=== PATIENT | male | born 1965 | race Caucasian/White ===

== ENCOUNTER 2021-07-18 13:02 | Inpatient (IN) ==
[~2021-07-18 13:02] MED LIST: CLORAZEPATE 3.75 MG TABLET PO PRN; DEXTROSE 50% 25 GM/50 ML VIAL IV PRN; GLUCAGON 1 MG VIAL IM PRN; MORPHINE 2 MG/1 ML SYRINGE IV PRN; NICOTINE 21 MG/24 HR PATCH TRANSDERM PRN; NITROGLYCERIN SL 0.4 MG TABLET SL PRN
[2021-07-18] MEDS: INSULIN REGULAR 100 UNIT/ML SUBCUT SCH ×3 (15:18→20:22)
[2021-07-18] MEDS: CHLORHEXIDINE 4% SOLN 118 ML BOTTLE TOP SCH ×4 (15:18→20:22)
[2021-07-18] MEDS: CHLORHEXIDINE 0.12% ORAL RINSE 60 ML BOTTLE SWISH/SPIT SCH ×2 (15:18→20:22)
[2021-07-18 15:38] LABS: Basophils # 0.1 10*3/uL (0.0-0.2); Basophils % 0.8 % (0.0-0.8); Eosinophils # 0.2 10*3/uL (0.0-0.87); Eosinophils % 1.8 % (0.00-10.9); Hematocrit 51.8 VOL% (42.0-52.0); Hemoglobin 16.7 GM/DL (14.0-18.0); Immature Granulocytes % 0.4 %; Immature Granulocytes Absolute 0.03 #; Lymphocytes # 2.2 10*3/uL (1.4-4.0); Lymphocytes % 26.4 % (21.2-54.2); Mean Corpuscular HGB Conc 32.2 GM/DL (32-36); Mean Corpuscular Volume 88.4 FL (87-102); Mean Platelet Volume 10.7 FL (9.6-12.0); Monocytes % 9.1 % (1.7-12.7); Neutrophils % 61.5 % (38.7-73.9); Platelet Count 198 T/CUMM (130-400); Red Blood Count 5.86 MC/CUMM (3.8-5.5); White Blood Count 8.3 T/CUMM (4-12)
[2021-07-18] MEDS ORDERED: PNEUMOCOCCAL VACCINE (23 VALENT) 0.5 ML VIAL IM ONE (15:41)
[2021-07-18] MEDS ORDERED: INFLUENZA VIRUS VACCINE 0.5 ML SYRINGE IM ONE (15:41)
[2021-07-18] MEDS: SODIUM CHLORIDE 0.9% 1,000 ML IV SCH (15:55)
[2021-07-18 15:59] LABS: Albumin 3.5 G/DL (3.4-5.0); Bilirubin,Total 1.4 MG/DL (0.20-1.00); Calcium 9.6 MG/DL (8.5-10.1); Osmolality,Calculated 283.1 MOS/KG (273-304); Potassium 3.7 MMOL/L (3.5-5.1); Total Protein 7.3 G/DL (6.4-8.2)
[2021-07-18 16:18] LABS: ABG Base Excess 2.2 MMOL/L (-2.5-2.5); ABG HCO3 26.1 MMOL/L (20-26); ABG Oxygen Saturation 90.1 % (95-100); ABG PCO2 50.3 MM HG (35-48); ABG PH 7.367 (7.35-7.45); ABG PO2 62.4 MM HG (80-95); ABG TCO2 24.1 MMOL/L (23-27); Allen Test Positive; Pt O2 Delivery Device Room Air
[2021-07-19] MEDS ORDERED: VANCOMYCIN 1,000 MG VIAL ONE (04:24)
[2021-07-19] MEDS ORDERED: PAPAVERINE 60 MG/2 ML VIAL ONE (04:24)
[2021-07-19] MEDS ORDERED: VANCOMYCIN 500 MG VIAL ONE (04:24)
[2021-07-19] MEDS ORDERED: CEFUROXIME INJ 1,500 MG in SODIUM CHLORIDE 0.9% 100 ML IV ONE (05:00)
[2021-07-19] MEDS ORDERED: LORazepam 1 MG TABLET PO ONE (05:30)
[2021-07-19] MEDS ORDERED: LACTATED RINGERS 1,000 ML IV ONE (05:50)
[2021-07-19] MEDS ORDERED: SODIUM CHLORIDE 0.9% 250 ML IV ONE (05:50)
[2021-07-19] MEDS ORDERED: PHENYLEPHRINE DRIP 20 MG/250 ML PREMIX IV ONE (05:50)
[2021-07-19] MEDS ORDERED: NITROGLYCERIN DRIP 50 MG/250 ML BOTTLE IV ONE (05:50)
[2021-07-19] MEDS ORDERED: SEVOFLURANE 1 UNIT/15 MINUTE INH ONE ×2 (05:50→11:14)
[2021-07-19] MEDS ORDERED: HEPARIN/NACL 0.9% 2 UNITS/ML 1,000 UNIT/500 ML BAG IV ONE (05:50)
[2021-07-19] MEDS ORDERED: LIDOCAINE 2% 5 ML VIAL ONE ×2 (05:50→10:47)
[2021-07-19] MEDS ORDERED: ETOMIDATE 40 MG/20 ML VIAL IV ONE (05:50)
[2021-07-19] MEDS ORDERED: CALCIUM CHLORIDE 1,000 MG/10 ML VIAL IV ONE ×3 (05:50→10:46)
[2021-07-19] MEDS ORDERED: AMINOCAPROIC ACID 5,000 MG/20 ML VIAL ONE (05:50)
[2021-07-19] MEDS ORDERED: VECURONIUM 10 MG VIAL IV ONE (05:50)
[2021-07-19] MEDS ORDERED: MINERAL OIL/PETROLATUM OPH OINT 3.5 GM TUBE ONE (05:50)
[2021-07-19] MEDS ORDERED: SODIUM CHLORIDE 0.9% 1,000 ML IV ONE (05:50)
[2021-07-19] MEDS ORDERED: MIDAZOLAM 10 MG/2 ML VIAL ONE ×4 (05:51)
[2021-07-19] MEDS ORDERED: SUFentanil 250 MCG/5 ML AMP ONE (05:51)
[2021-07-19] MEDS ORDERED: ePHEDrine 50 MG/ML VIAL ONE (05:51)
[2021-07-19] MEDS ORDERED: ALBUTEROL 2.5 MG/3 ML NEB RESP TX ONE ×2 (06:00→06:20)
[2021-07-19] MEDS ORDERED: FAMOTIDINE 20 MG TABLET PO ONE (06:00)
[2021-07-19] MEDS ORDERED: IPRATROPIUM 500 MCG/2.5 ML NEB RESP TX ONE (06:00)
[2021-07-19] MEDS ORDERED: LACTATED RINGERS 1,000 ML IV SCH (06:00)
[2021-07-19] MEDS ORDERED: FUROSEMIDE 20 MG/2 ML VIAL ONE ×3 (06:00→10:49)
[2021-07-19] MEDS ORDERED: POTASSIUM CHLORIDE RIDER 20 MEQ/100 ML PREMIX IV ONE (07:04)
[2021-07-19 07:29] LABS: ABG Base Excess -0.8 MMOL/L (-2.5-2.5); ABG HCO3 23.8 MMOL/L (20-26); ABG Oxygen Saturation 99.1 % (95-100); ABG PCO2 60.1 MM HG (35-48); ABG PH 7.279 (7.35-7.45); Glucose Heart Surgery 134 MG/DL (74-106); Hematocrit Heart Surgery 50.2 PERCENT (42-52); Hemoglobin Heart Surgery 16.4 G/DL (14.0-18.0); Ionized Calcium Arterial 1.24 MMOL/L (1.21-1.46); PCO2 Patient Temp Arterial 60.1 MMHG; PH Patient Temp Arterial 7.279; Patient Temperature 37 CELCIUS; Potassium Heart/CVR 4.3 MMOL/L (3.5-5.1); Sodium Heart/CVR 138 MMOL/L (135-145)
[2021-07-19] MEDS ORDERED: ALBUMIN 5% 12.5 GM/250 ML VIAL IV ONE (07:52)
[2021-07-19 07:53] LABS: Bacteria,Urine Occasional /HPF (Few); Bilirubin,Urine Negative (Negative); Blood, Urine Negative (Negative); Glucose,Urine (UA) Negative (Negative); Ketones,Urine Negative (Negative); Mucus,Urine Occasional /LPF (Occasional); Nitrite,Urine Negative (Negative); Protein,Urine Negative; RBC,Urine 1 /HPF (0-4); Urine Appearance CLEAR (Clear); Urine Color Yellow (Yellow); Urine Urobilinogen < 2.0 EU/DL (0.2-1.0)
[2021-07-19 09:00] LABS: Hematocrit Heart Surgery 39.9 PERCENT (42-52); PCO2 Patient Temp Venous 44.4 MM HG; PH Patient Temp Venous 7.398; PO2 Patient Temp Venous 36.3 MM HG; Potassium Heart/CVR 4.9 MMOL/L (3.5-5.1); VBG Base Excess 2.1 MEQ/L (0-4); VBG HCO3 25.8 MEQ/L (24-28); VBG Oxygen Saturation 76.2 %; VBG PCO2 51.3 MMHG (41-51); VBG PH 7.355; VBG PO2 44.7 MMHG (17-40); VBG Total CO2 25.3 MMOL/L
[2021-07-19 09:32] LABS: Hematocrit Heart Surgery 43.3 PERCENT (42-52); Hemoglobin Heart Surgery 14.1 G/DL (14.0-18.0); PCO2 Patient Temp Venous 40.3 MM HG; PH Patient Temp Venous 7.429; PO2 Patient Temp Venous 34.6 MM HG; Potassium Heart/CVR 4.6 MMOL/L (3.5-5.1); VBG Base Excess 2.1 MEQ/L (0-4); VBG HCO3 25.7 MEQ/L (24-28); VBG Oxygen Saturation 75.1 %; VBG PCO2 46.5 MMHG (41-51); VBG PH 7.385; VBG PO2 42.7 MMHG (17-40); VBG Total CO2 24.2 MMOL/L
[2021-07-19 10:01] LABS: Hematocrit Heart Surgery 45.5 PERCENT (42-52); Hemoglobin Heart Surgery 14.8 G/DL (14.0-18.0); PCO2 Patient Temp Venous 43.5 MM HG; PH Patient Temp Venous 7.405; PO2 Patient Temp Venous 44.3 MM HG; Potassium Heart/CVR 4.4 MMOL/L (3.5-5.1); VBG HCO3 25.7 MEQ/L (24-28); VBG Oxygen Saturation 78.5 %; VBG PCO2 45.6 MMHG (41-51); VBG PH 7.39; VBG PO2 47.5 MMHG (17-40); VBG Total CO2 23.8 MMOL/L
[2021-07-19] MEDS ORDERED: MAGNESIUM SULFATE 5 GM/10 ML VIAL IV ONE (10:47)
[2021-07-19] MEDS ORDERED: ALBUMIN 25% 25 GM/100 ML VIAL IV ONE (10:47)
[2021-07-19] MEDS ORDERED: PROTAMINE SULFATE 250 MG/25 ML VIAL IV ONE (10:48)
[2021-07-19] MEDS ORDERED: MANNITOL 100 GM/500 ML BAG IV ONE (10:48)
[2021-07-19] MEDS ORDERED: methylPREDNISolone SOD SUC 1,000 MG/8 ML VIAL ONE (10:48)
[2021-07-19] MEDS ORDERED: HEPARIN 10,000 UNIT/10 ML VIAL ONE (10:48)
[2021-07-19] MEDS ORDERED: DEXTROSE 5% KCL 20 MEQ 20 MEQ/1,000 ML BAG IV ONE (10:48)
[2021-07-19] MEDS ORDERED: SODIUM BICARBONATE 50 MEQ/50 ML VIAL IV ONE (10:49)
[2021-07-19 10:55] LABS: ABG Base Excess -0.6 MMOL/L (-2.5-2.5); ABG HCO3 23.9 MMOL/L (20-26); ABG Oxygen Saturation 99.6 % (95-100); ABG PCO2 47.2 MM HG (35-48); ABG PH 7.345 (7.35-7.45); Glucose Heart Surgery 209 MG/DL (74-106); Hematocrit Heart Surgery 47.1 PERCENT (42-52); Hemoglobin Heart Surgery 15.4 G/DL (14.0-18.0); Ionized Calcium Arterial 1.26 MMOL/L (1.21-1.46); PCO2 Patient Temp Arterial 47.2 MMHG; PH Patient Temp Arterial 7.345; Patient Temperature 37 CELCIUS; Sodium Heart/CVR 135 MMOL/L (135-145)
[2021-07-19] MEDS ORDERED: SODIUM CHLORIDE 0.45% 1,000 ML IV SCH ×2 (11:01)
[2021-07-19] MEDS ORDERED: CHLORHEXIDINE 4% SOLN 118 ML BOTTLE TOP PRN (11:01)
[2021-07-19] MEDS ORDERED: MAGNESIUM SULF RIDER 4 GM/100 ML PREMIX IV PRN (11:01)
[2021-07-19] MEDS ORDERED: POTASSIUM CHLORIDE RIDER 10 MEQ/100 ML PREMIX IV PRN (11:01)
[2021-07-19] MEDS ORDERED: INSULIN REGULAR 100 UNIT/ML IV PRN (11:01)
[2021-07-19] MEDS ORDERED: ACETAMINOPHEN 650 MG SUPP RECTAL PRN (11:01)
[2021-07-19] MEDS ORDERED: VECURONIUM 10 MG VIAL IV PRN ×2 (11:01)
[2021-07-19] MEDS ORDERED: NITROPRUSSIDE 100 MG in DEXTROSE 5% 250 ML IV PRN (11:01)
[2021-07-19] MEDS ORDERED: INSULIN REGULAR 100 UNIT/ML IV ONE (11:01)
[2021-07-19] MEDS ORDERED: PHENYLEPHRINE DRIP 40 MG/250 ML PREMIX IV PRN (11:01)
[2021-07-19] MEDS ORDERED: CALCIUM CHLORIDE 1,000 MG/10 ML SYRINGE IV PRN (11:01)
[2021-07-19] MEDS ORDERED: DEXTROSE 50% 25 GM/50 ML VIAL IV PRN ×2 (11:01)
[2021-07-19] MEDS ORDERED: MAGNESIUM SULF RIDER 2 GM/50 ML PREMIX IV PRN (11:01)
[2021-07-19] MEDS ORDERED: ONDANSETRON 4 MG/2 ML VIAL IV PRN (11:01)
[2021-07-19] MEDS ORDERED: MIDAZOLAM 10 MG/2 ML VIAL IV PRN (11:01)
[2021-07-19] MEDS ORDERED: MIDAZOLAM 2 MG/2 ML VIAL IV PRN (11:01)
[2021-07-19 11:59] LABS: ABG Base Excess -0.7 MMOL/L (-2.5-2.5); ABG HCO3 23.9 MMOL/L (20-26); ABG Oxygen Saturation 99.3 % (95-100); ABG PCO2 50.4 MM HG (35-48); ABG PH 7.327 (7.35-7.45); ABG TCO2 22.4 MMOL/L (23-27); Glucose Heart Surgery 180 MG/DL (74-106); Hematocrit Heart Surgery 48.2 PERCENT (42-52); Hemoglobin Heart Surgery 15.7 G/DL (14.0-18.0); Potassium Heart/CVR 3.6 MMOL/L (3.5-5.1)
[2021-07-19] MEDS: LACTATED RINGERS 250 ML IV PRN ×12 (12:00→18:04)
[2021-07-19 12:18] LABS: Basophils # 0.1 10*3/uL (0.0-0.2); Basophils % 0.6 % (0.0-0.8); Eosinophils # 0.1 10*3/uL (0.0-0.87); Eosinophils % 0.6 % (0.00-10.9); Hematocrit 48.6 VOL% (42.0-52.0); Hemoglobin 15.3 GM/DL (14.0-18.0); Immature Granulocytes % 0.9 %; Immature Granulocytes Absolute 0.14 #; Lymphocytes # 1.9 10*3/uL (1.4-4.0); Lymphocytes % 11.5 % (21.2-54.2); Mean Corpuscular HGB Conc 31.5 GM/DL (32-36); Mean Corpuscular Volume 91.2 FL (87-102); Mean Platelet Volume 10.8 FL (9.6-12.0); Monocytes % 5.3 % (1.7-12.7); Neutrophils % 81.1 % (38.7-73.9); Platelet Count 197 T/CUMM (130-400); Red Blood Count 5.33 MC/CUMM (3.8-5.5); Red Cell Distribution Width 15.9 % (9.3-17.3); White Blood Count 16.5 T/CUMM (4-12)
[2021-07-19 12:28] LABS: INR 1.1; PT Patient Result 12.2 SECS (10.5-12.0); Partial Thromboplastin Time 25.6 SECS (23.9-33.8)
[2021-07-19] MEDS: ALBUMIN 5% 12.5 GM/250 ML VIAL IV PRN ×3 (12:33→15:19)
[2021-07-19] MEDS: INSULIN REGULAR DRIP 100 ML IV SCH (12:34)
[2021-07-19 12:39] LABS: CKMB % 5.2 %
[2021-07-19 12:46] LABS: Albumin 3.5 G/DL (3.4-5.0); Osmolality,Calculated 278.7 MOS/KG (273-304); Potassium 3.7 MMOL/L (3.5-5.1); Total Protein 6.4 G/DL (6.4-8.2)
[2021-07-19 12:55] LABS: High Sensitive Troponin I* 3139.1 ng/L (0-78)
[2021-07-19] MEDS: POTASSIUM CHLORIDE RIDER 20 MEQ/100 ML PREMIX IV PRN ×4 (12:56→21:22)
[2021-07-19] MEDS: MORPHINE 10 MG/1 ML VIAL IV PRN ×3 (13:12→22:36)
[2021-07-19 13:23] LABS: ABG Base Excess -0.8 MMOL/L (-2.5-2.5); ABG HCO3 23.7 MMOL/L (20-26); ABG Oxygen Saturation 97.7 % (95-100); ABG PCO2 49.2 MM HG (35-48); ABG PH 7.329 (7.35-7.45); ABG TCO2 22.5 MMOL/L (23-27); Glucose Heart Surgery 175 MG/DL (74-106); Hematocrit Heart Surgery 43.7 PERCENT (42-52); Hemoglobin Heart Surgery 14.2 G/DL (14.0-18.0); Potassium Heart/CVR 4.1 MMOL/L (3.5-5.1)
[2021-07-19] MEDS: CHLORHEXIDINE 0.12% ORAL RINSE 60 ML BOTTLE SWISH/SPIT SCH ×2 (13:24→21:28)
[2021-07-19] MEDS: SODIUM CHLORIDE 0.9% 1,000 ML IV SCH (13:24)
[2021-07-19] MEDS: INSULIN REGULAR 100 UNIT/ML SUBCUT SCH (13:24)
[2021-07-19 15:10] LABS: ABG Base Excess 0.4 MMOL/L (-2.5-2.5); ABG HCO3 24.8 MMOL/L (20-26); ABG Oxygen Saturation 96.6 % (95-100); ABG PCO2 47.4 MM HG (35-48); ABG PH 7.357 (7.35-7.45); ABG PO2 94.2 MM HG (80-95); Glucose Heart Surgery 190 MG/DL (74-106); Hematocrit Heart Surgery 43.8 PERCENT (42-52); Hemoglobin Heart Surgery 14.3 G/DL (14.0-18.0); Potassium Heart/CVR 4.4 MMOL/L (3.5-5.1)
[2021-07-19] MEDS: KETOROLAC 30 MG/1 ML VIAL IV SCH ×2 (16:10→22:13)
[2021-07-19] MEDS: CEFUROXIME INJ 1,500 MG in SODIUM CHLORIDE 0.9% 100 ML IV SCH (18:00)
[2021-07-19 18:12] LABS: ABG Base Excess -0.5 MMOL/L (-2.5-2.5); ABG HCO3 25.4 MMOL/L (20-26); ABG Oxygen Saturation 93.4 % (95-100); ABG PCO2 46.2 MM HG (35-48); ABG PH 7.358 (7.35-7.45); ABG PO2 70.4 MM HG (80-95); ABG TCO2 26.8 MMOL/L (23-27); Glucose Heart Surgery 182 MG/DL (74-106); Hemoglobin Heart Surgery 14.3 G/DL (14.0-18.0); Potassium Heart/CVR 4.3 MMOL/L (3.5-5.1)
[2021-07-19] MEDS ORDERED: FUROSEMIDE 40 MG/4 ML VIAL IV ONE (18:16)
[2021-07-19 19:43] LABS: CKMB % 5.9 %
[2021-07-19 21:16] LABS: ABG Base Excess 0.4 MMOL/L (-2.5-2.5); ABG HCO3 26.2 MMOL/L (20-26); ABG Oxygen Saturation 94.2 % (95-100); ABG PCO2 46.6 MM HG (35-48); ABG PH 7.368 (7.35-7.45); ABG PO2 73.6 MM HG (80-95); ABG TCO2 27.6 MMOL/L (23-27); Glucose Heart Surgery 178 MG/DL (74-106); Hemoglobin Heart Surgery 14.3 G/DL (14.0-18.0); Potassium Heart/CVR 4.4 MMOL/L (3.5-5.1)
[2021-07-19 22:10] LABS: ABG Base Excess 1.2 MMOL/L (-2.5-2.5); ABG HCO3 27.2 MMOL/L (20-26); ABG Oxygen Saturation 93.1 % (95-100); ABG PCO2 48.1 MM HG (35-48); ABG PO2 69.5 MM HG (80-95); ABG TCO2 28.7 MMOL/L (23-27); Glucose Heart Surgery 169 MG/DL (74-106); Hemoglobin Heart Surgery 14.6 G/DL (14.0-18.0); Potassium Heart/CVR 4.6 MMOL/L (3.5-5.1)
[2021-07-19] MEDS: ALBUTEROL/IPRATROPIUM 3 ML NEB RESP TX PRN (23:01)
[2021-07-19 23:53] LABS: ABG Base Excess 0.6 MMOL/L (-2.5-2.5); ABG HCO3 24.9 MMOL/L (20-26); ABG Oxygen Saturation 93.4 % (95-100); ABG PCO2 48.4 MM HG (35-48); ABG PH 7.353 (7.35-7.45); ABG PO2 75.1 MM HG (80-95); ABG TCO2 23.5 MMOL/L (23-27); Glucose Heart Surgery 180 MG/DL (74-106); Hematocrit Heart Surgery 41.7 PERCENT (42-52); Hemoglobin Heart Surgery 13.6 G/DL (14.0-18.0); Potassium Heart/CVR 4.4 MMOL/L (3.5-5.1)
[2021-07-20] MEDS ORDERED: FUROSEMIDE 40 MG/4 ML VIAL IV ONE ×2 (00:55→08:04)
[2021-07-20 01:08] LABS: ABG HCO3 25.2 MMOL/L (20-26); ABG PCO2 43.8 MM HG (35-48); ABG PH 7.387 (7.35-7.45); ABG PO2 69.6 MM HG (80-95); ABG TCO2 22.9 MMOL/L (23-27); Glucose Heart Surgery 173 MG/DL (74-106); Hemoglobin Heart Surgery 13.7 G/DL (14.0-18.0); Potassium Heart/CVR 4.4 MMOL/L (3.5-5.1)
[2021-07-20 02:22] LABS: ABG Base Excess 2.1 MMOL/L (-2.5-2.5); ABG HCO3 25.9 MMOL/L (20-26); ABG Oxygen Saturation 85.7 % (95-100); ABG PCO2 44.8 MM HG (35-48); ABG PH 7.396 (7.35-7.45); ABG PO2 55.3 MM HG (80-95); ABG TCO2 23.8 MMOL/L (23-27); Glucose Heart Surgery 174 MG/DL (74-106); Hematocrit Heart Surgery 43.5 PERCENT (42-52); Hemoglobin Heart Surgery 14.2 G/DL (14.0-18.0); Potassium Heart/CVR 4.1 MMOL/L (3.5-5.1)
[2021-07-20] MEDS: ALBUTEROL/IPRATROPIUM 3 ML NEB RESP TX PRN (02:46)
[2021-07-20] MEDS: INSULIN REGULAR DRIP 100 ML IV SCH (03:19)
[2021-07-20] MEDS: POTASSIUM CHLORIDE RIDER 20 MEQ/100 ML PREMIX IV PRN ×2 (03:34→05:09)
[2021-07-20 04:25] LABS: ABG Base Excess 2.1 MMOL/L (-2.5-2.5); ABG Oxygen Saturation 87.4 % (95-100); ABG PCO2 43.6 MM HG (35-48); ABG PH 7.404 (7.35-7.45); ABG PO2 56.7 MM HG (80-95); ABG TCO2 23.7 MMOL/L (23-27); Hematocrit Heart Surgery 41.7 PERCENT (42-52); Hemoglobin Heart Surgery 13.6 G/DL (14.0-18.0); Potassium Heart/CVR 4.3 MMOL/L (3.5-5.1)
[2021-07-20 04:27] LABS: Glucose Heart Surgery 160 MG/DL (74-106)
[2021-07-20 04:43] LABS: Basophils % 0.1 % (0.0-0.8); Hematocrit 42.4 VOL% (42.0-52.0); Hemoglobin 13.3 GM/DL (14.0-18.0); Immature Granulocytes % 0.6 %; Immature Granulocytes Absolute 0.07 #; Lymphocytes # 1.1 10*3/uL (1.4-4.0); Mean Corpuscular HGB Conc 31.4 GM/DL (32-36); Mean Platelet Volume 11.1 FL (9.6-12.0); Monocytes % 7.5 % (1.7-12.7); Neutrophils % 82.8 % (38.7-73.9); Platelet Count 180 T/CUMM (130-400); Red Blood Count 4.61 MC/CUMM (3.8-5.5); Red Cell Distribution Width 16.2 % (9.3-17.3); White Blood Count 12.6 T/CUMM (4-12)
[2021-07-20 04:54] LABS: Alanine Aminotransferase 32 U/L (16-61); Albumin 3.7 G/DL (3.4-5.0); Alkaline Phosphatase 55 U/L (45-117); Aspartate Amino Transferase 148 U/L (0-37); Bilirubin,Direct < 0.100 MG/DL (0.0-0.20); Blood Urea Nitrogen 19 MG/DL (7-18); Calcium 8.3 MG/DL (8.5-10.1); Carbon Dioxide 29 MMOL/L (21-32); Estimated Glom Filtration Rate 140 ML/MIN; Glucose 149 MG/DL (74-106); Osmolality,Calculated 279.7 MOS/KG (273-304); Potassium 4.4 MMOL/L (3.5-5.1); Sodium 138 MMOL/L (136-145); Total Protein 6.2 G/DL (6.4-8.2)
[2021-07-20 05:06] LABS: CKMB % 9.9 %
[2021-07-20] MEDS: KETOROLAC 30 MG/1 ML VIAL IV SCH ×4 (05:09→21:48)
[2021-07-20] MEDS: CEFUROXIME INJ 1,500 MG in SODIUM CHLORIDE 0.9% 100 ML IV SCH ×2 (06:31→18:13)
[2021-07-20] MEDS ORDERED: GLUCAGON 1 MG VIAL IM PRN ×3 (07:10→09:42)
[2021-07-20] MEDS ORDERED: DEXTROSE 50% 25 GM/50 ML VIAL IV PRN ×3 (07:10→09:42)
[2021-07-20] MEDS ORDERED: oxyCODONE/ACETAMINOPHEN 5-325 MG TABLET PO PRN (07:19)
[2021-07-20] MEDS ORDERED: INSULIN REGULAR 100 UNIT/ML SUBCUT SCH (08:00)
[2021-07-20] MEDS ORDERED: FUROSEMIDE 40 MG/4 ML VIAL ONE (08:28)
[2021-07-20] MEDS: ASPIRIN EC 81 MG TABLET PO SCH (09:35)
[2021-07-20] MEDS: hydroCHLOROthiazide 25 MG TABLET PO SCH (09:35)
[2021-07-20] MEDS: METOPROLOL TARTRATE 25 MG TABLET PO SCH (09:35)
[2021-07-20] MEDS: CHLORHEXIDINE 0.12% ORAL RINSE 60 ML BOTTLE SWISH/SPIT SCH ×2 (09:38→22:05)
[2021-07-20] MEDS ORDERED: MAGNESIUM SULF RIDER 4 GM/100 ML PREMIX IV PRN (09:42)
[2021-07-20] MEDS ORDERED: ONDANSETRON 4 MG/2 ML VIAL IV PRN (09:42)
[2021-07-20] MEDS ORDERED: MAGNESIUM SULF RIDER 2 GM/50 ML PREMIX IV PRN (09:42)
[2021-07-20] MEDS ORDERED: SODIUM CHLOR 0.45% KCL 20 MEQ 20 MEQ/1,000 ML BAG IV SCH (09:42)
[2021-07-20] MEDS ORDERED: ZALEPLON 5 MG CAPSULE PO PRN (09:42)
[2021-07-20] MEDS ORDERED: ACETAMINOPHEN 325 MG TABLET PO PRN (09:42)
[2021-07-20] MEDS ORDERED: ALUMINUM/MAGNES/SIMETH MAX STR 30 ML UDCUP PO PRN (09:42)
[2021-07-20] MEDS ORDERED: POTASSIUM CHLORIDE 20 MEQ TABLET PO PRN (09:42)
[2021-07-20] MEDS ORDERED: MAGNESIUM HYDROXIDE SUSP 30 ML UDCUP PO PRN (09:42)
[2021-07-20] MEDS ORDERED: ALBUTEROL 2.5 MG/3 ML NEB RESP TX PRN (09:42)
[2021-07-20 12:21] LABS: CKMB % 9.6 %
[2021-07-20 12:26] LABS: High Sensitive Troponin I* 41305.6 ng/L (0-78)
[2021-07-20] MEDS: oxyCODONE/ACETAMINOPHEN 5-325 MG TABLET PO PRN ×3 (14:19→22:29)
[2021-07-20] MEDS: ALBUTEROL/IPRATROPIUM 3 ML NEB RESP TX SCH ×2 (14:43→19:05)
[2021-07-20 17:39] LABS: CKMB % 7.7 %
[2021-07-20] MEDS: ASCORBIC ACID 500 MG TABLET PO SCH (21:43)
[2021-07-21] MEDS: ALBUTEROL/IPRATROPIUM 3 ML NEB RESP TX SCH ×4 (01:48→19:17)
[2021-07-21] MEDS: KETOROLAC 30 MG/1 ML VIAL IV SCH ×4 (04:19→22:15)
[2021-07-21] MEDS ORDERED: FUROSEMIDE 40 MG/4 ML VIAL IV ONE (06:00)
[2021-07-21 06:30] LABS: Basophils % 0.1 % (0.0-0.8); Hematocrit 41.3 VOL% (42.0-52.0); Immature Granulocytes % 0.6 %; Immature Granulocytes Absolute 0.09 #; Lymphocytes # 1.7 10*3/uL (1.4-4.0); Lymphocytes % 11.7 % (21.2-54.2); Mean Corpuscular HGB Conc 31.5 GM/DL (32-36); Mean Platelet Volume 11.2 FL (9.6-12.0); Monocytes % 11.4 % (1.7-12.7); Neutrophils % 76.2 % (38.7-73.9); Platelet Count 166 T/CUMM (130-400); Red Blood Count 4.49 MC/CUMM (3.8-5.5); Red Cell Distribution Width 16.4 % (9.3-17.3); White Blood Count 14.8 T/CUMM (4-12)
[2021-07-21 06:58] LABS: Alanine Aminotransferase 41 U/L (16-61); Albumin 3.4 G/DL (3.4-5.0); Alkaline Phosphatase 57 U/L (45-117); Aspartate Amino Transferase 199 U/L (0-37); Bilirubin,Direct < 0.100 MG/DL (0.0-0.20); Blood Urea Nitrogen 26 MG/DL (7-18); Carbon Dioxide 31 MMOL/L (21-32); Estimated Glom Filtration Rate 151 ML/MIN; Glucose 139 MG/DL (74-106); Osmolality,Calculated 276.1 MOS/KG (273-304); Potassium 4.1 MMOL/L (3.5-5.1); Sodium 135 MMOL/L (136-145); Total Protein 6.9 G/DL (6.4-8.2)
[2021-07-21 07:10] LABS: Albumin 3.3 G/DL (3.4-5.0); Bilirubin,Direct 0.12 MG/DL (0.0-0.20); Bilirubin,Indirect 0.4 MG/DL (0.0-1.0); Bilirubin,Total 0.5 MG/DL (0.20-1.00); CKMB % 4.7 %; Total Protein 6.8 G/DL (6.4-8.2)
[2021-07-21 07:11] LABS: High Sensitive Troponin I* 25734.2 ng/L (0-78)
[2021-07-21] MEDS: oxyCODONE/ACETAMINOPHEN 5-325 MG TABLET PO PRN ×2 (08:35→18:56)
[2021-07-21] MEDS: FERROUS SULFATE 325 MG TABLET PO SCH (09:40)
[2021-07-21] MEDS: hydroCHLOROthiazide 25 MG TABLET PO SCH (09:40)
[2021-07-21] MEDS: ASCORBIC ACID 500 MG TABLET PO SCH ×2 (09:40→20:53)
[2021-07-21] MEDS: DOCUSATE SODIUM 100 MG CAPSULE PO SCH (09:40)
[2021-07-21] MEDS: PANTOPRAZOLE 40 MG TABLET PO SCH (09:41)
[2021-07-21] MEDS: CHLORHEXIDINE 0.12% ORAL RINSE 60 ML BOTTLE SWISH/SPIT SCH ×2 (09:41→20:53)
[2021-07-21] MEDS: ASPIRIN EC 81 MG TABLET PO SCH (09:41)
[2021-07-21] MEDS: METOPROLOL TARTRATE 25 MG TABLET PO SCH (09:41)
[2021-07-21] MEDS: ROSUVASTATIN 10 MG TABLET PO SCH (20:53)
[2021-07-22] MEDS: oxyCODONE/ACETAMINOPHEN 5-325 MG TABLET PO PRN ×3 (00:23→22:52)
[2021-07-22] MEDS: ALBUTEROL/IPRATROPIUM 3 ML NEB RESP TX SCH ×4 (01:16→19:53)
[2021-07-22] MEDS: KETOROLAC 30 MG/1 ML VIAL IV SCH ×4 (04:03→21:50)
[2021-07-22 04:47] LABS: Basophils % 0.3 % (0.0-0.8); Eosinophils % 0.3 % (0.00-10.9); Hematocrit 39.2 VOL% (42.0-52.0); Hemoglobin 12.4 GM/DL (14.0-18.0); Immature Granulocytes % 0.7 %; Immature Granulocytes Absolute 0.08 #; Lymphocytes # 2.2 10*3/uL (1.4-4.0); Lymphocytes % 19.1 % (21.2-54.2); Mean Corpuscular HGB Conc 31.6 GM/DL (32-36); Mean Corpuscular Volume 91.2 FL (87-102); Mean Platelet Volume 11.4 FL (9.6-12.0); Monocytes % 12.1 % (1.7-12.7); Neutrophils % 67.5 % (38.7-73.9); Platelet Count 170 T/CUMM (130-400); Red Cell Distribution Width 16.3 % (9.3-17.3); White Blood Count 11.7 T/CUMM (4-12)
[2021-07-22 05:25] LABS: Albumin 3.1 G/DL (3.4-5.0); Bilirubin,Direct 0.16 MG/DL (0.0-0.20); Bilirubin,Total 0.6 MG/DL (0.20-1.00); Calcium 8.8 MG/DL (8.5-10.1); Osmolality,Calculated 277.8 MOS/KG (273-304); Potassium 3.7 MMOL/L (3.5-5.1); Total Protein 6.7 G/DL (6.4-8.2)
[2021-07-22 05:30] LABS: Bilirubin,Direct 0.14 MG/DL (0.0-0.20); Bilirubin,Indirect 0.5 MG/DL (0.0-1.0); Bilirubin,Total 0.6 MG/DL (0.20-1.00); CKMB % 1.8 %; Total Protein 6.7 G/DL (6.4-8.2)
[2021-07-22] MEDS: POLYETHYLENE GLYCOL POWDER 17 GM PACK PO SCH (09:46)
[2021-07-22] MEDS: FERROUS SULFATE 325 MG TABLET PO SCH (09:47)
[2021-07-22] MEDS: METOPROLOL TARTRATE 25 MG TABLET PO SCH ×2 (09:47→20:49)
[2021-07-22] MEDS: ASPIRIN EC 81 MG TABLET PO SCH (09:47)
[2021-07-22] MEDS: PANTOPRAZOLE 40 MG TABLET PO SCH (09:47)
[2021-07-22] MEDS: hydroCHLOROthiazide 25 MG TABLET PO SCH (09:47)
[2021-07-22] MEDS: metFORMIN 500 MG TABLET PO SCH (09:47)
[2021-07-22] MEDS: ASCORBIC ACID 500 MG TABLET PO SCH ×2 (09:48→20:49)
[2021-07-22] MEDS: DOCUSATE SODIUM 100 MG CAPSULE PO SCH (09:48)
[2021-07-22] MEDS: CHLORHEXIDINE 0.12% ORAL RINSE 60 ML BOTTLE SWISH/SPIT SCH ×2 (09:48→20:50)
[2021-07-22] MEDS ORDERED: FUROSEMIDE 40 MG/4 ML VIAL IV ONE (12:34)
[2021-07-22] MEDS: ROSUVASTATIN 10 MG TABLET PO SCH (20:49)
[2021-07-23] MEDS: ALBUTEROL/IPRATROPIUM 3 ML NEB RESP TX SCH ×2 (00:18→07:04)
[2021-07-23] MEDS: KETOROLAC 30 MG/1 ML VIAL IV SCH (04:46)
[2021-07-23 06:46] LABS: Basophils # 0.1 10*3/uL (0.0-0.2); Basophils % 0.6 % (0.0-0.8); Eosinophils # 0.1 10*3/uL (0.0-0.87); Eosinophils % 1.1 % (0.00-10.9); Hematocrit 38.1 VOL% (42.0-52.0); Hemoglobin 12.4 GM/DL (14.0-18.0); Immature Granulocytes % 0.8 %; Immature Granulocytes Absolute 0.08 #; Lymphocytes # 2.6 10*3/uL (1.4-4.0); Lymphocytes % 24.6 % (21.2-54.2); Mean Corpuscular HGB Conc 32.5 GM/DL (32-36); Mean Corpuscular Volume 90.7 FL (87-102); Mean Platelet Volume 11.6 FL (9.6-12.0); Monocytes % 11.4 % (1.7-12.7); Neutrophils % 61.5 % (38.7-73.9); Platelet Count 193 T/CUMM (130-400); White Blood Count 10.4 T/CUMM (4-12)
[2021-07-23 07:11] LABS: Calcium 9.1 MG/DL (8.5-10.1); Potassium 3.8 MMOL/L (3.5-5.1)
[2021-07-23 08:31] VITALS: BP 108/64
[2021-07-23] MEDS: ASPIRIN EC 81 MG TABLET PO SCH (08:55)
[2021-07-23] MEDS: ASCORBIC ACID 500 MG TABLET PO SCH (08:55)
[2021-07-23] MEDS: METOPROLOL TARTRATE 25 MG TABLET PO SCH (08:55)
[2021-07-23] MEDS: POLYETHYLENE GLYCOL POWDER 17 GM PACK PO SCH (08:55)
[2021-07-23] MEDS: CHLORHEXIDINE 0.12% ORAL RINSE 60 ML BOTTLE SWISH/SPIT SCH (08:55)
[2021-07-23] MEDS: DOCUSATE SODIUM 100 MG CAPSULE PO SCH (08:55)
[2021-07-23] MEDS: FERROUS SULFATE 325 MG TABLET PO SCH (08:55)
[2021-07-23] MEDS: hydroCHLOROthiazide 25 MG TABLET PO SCH (08:56)
[2021-07-23] MEDS: metFORMIN 500 MG TABLET PO SCH (08:56)
[2021-07-23] MEDS: PANTOPRAZOLE 40 MG TABLET PO SCH (08:56)
== END 2021-07-23 11:18 | disposition home health service (06) | DRG 236 ==
LOC: N.TELEN 14:43 → N.CVR 07-19 07:43 → N.TELES 07-20 11:16

== ENCOUNTER 2021-07-31 18:57 | Inpatient (IN) ==
[2021-07-31] MEDS ORDERED: FUROSEMIDE 40 MG/4 ML VIAL ONE (19:23)
[2021-07-31] MEDS ORDERED: FUROSEMIDE 40 MG/4 ML VIAL IV STA (19:26)
[2021-07-31] MEDS ORDERED: PIPERACILLIN/TAZOBACTAM 3,375 MG in SODIUM CHLORIDE 0.9% 100 ML IV STA (19:26)
[2021-07-31] MEDS ORDERED: methylPREDNISolone SOD SUC 125 MG/2 ML VIAL IV STA (19:26)
[2021-07-31] MEDS ORDERED: ONDANSETRON 4 MG/2 ML VIAL IV STA (19:26)
[2021-07-31] MEDS ORDERED: ALBUTEROL NEB SOLN 5 MG/ML 20 ML/BOTTLE CONT NEB SCH (19:30)
[2021-07-31 19:35] LABS: Basophils # 0.1 10*3/uL (0.0-0.2); Basophils % 0.3 % (0.0-0.8); Eosinophils % 0.1 % (0.00-10.9); Hematocrit 36.7 VOL% (42.0-52.0); Hemoglobin 11.7 GM/DL (14.0-18.0); Immature Granulocytes % 0.6 %; Immature Granulocytes Absolute 0.11 #; Lymphocytes # 1.2 10*3/uL (1.4-4.0); Lymphocytes % 6.8 % (21.2-54.2); Mean Corpuscular HGB Conc 31.9 GM/DL (32-36); Mean Corpuscular Volume 89.1 FL (87-102); Mean Platelet Volume 9.4 FL (9.6-12.0); Monocytes % 4.5 % (1.7-12.7); Neutrophils % 87.7 % (38.7-73.9); Platelet Count 304 T/CUMM (130-400); Red Blood Count 4.12 MC/CUMM (3.8-5.5); Red Cell Distribution Width 16.2 % (9.3-17.3)
[2021-07-31 19:56] LABS: Albumin 2.8 G/DL (3.4-5.0); Bilirubin,Total 0.4 MG/DL (0.20-1.00); Calcium 8.7 MG/DL (8.5-10.1); Osmolality,Calculated 270.2 MOS/KG (273-304); Potassium 3.9 MMOL/L (3.5-5.1); Total Protein 6.2 G/DL (6.4-8.2)
[2021-07-31 20:33] LABS: INR 1.1; PT Patient Result 12.3 SECS (10.5-12.0)
[2021-07-31] MEDS ORDERED: ALBUTEROL NEB SOLN 5 MG/ML 20 ML/BOTTLE CONT NEB STA (20:45)
[2021-07-31] MEDS ORDERED: ENOXAPARIN 40 MG/0.4 ML SYRINGE SUBCUT SCH (21:00)
[2021-07-31 21:18] LABS: Bacteria,Urine Occasional /HPF (Few); Bilirubin,Urine Negative (Negative); Blood, Urine Small mg/dL (Negative); Glucose,Urine (UA) Negative (Negative); Ketones,Urine Negative (Negative); Mucus,Urine Occasional /LPF (Occasional); Nitrite,Urine Negative (Negative); Protein,Urine Negative; RBC,Urine 18 /HPF (0-4); Urine Appearance CLEAR (Clear); Urine Color Yellow (Yellow); Urine Urobilinogen < 2.0 EU/DL (0.2-1.0)
[2021-07-31] MEDS ORDERED: guaiFENesin/DM ER 600-30 MG TABLET PO PRN (21:39)
[2021-07-31] MEDS ORDERED: GLUCAGON 1 MG VIAL IM PRN (21:39)
[2021-07-31] MEDS ORDERED: ONDANSETRON 4 MG/2 ML VIAL IV PRN (21:39)
[2021-07-31] MEDS ORDERED: ACETAMINOPHEN 325 MG TABLET PO PRN (21:39)
[2021-07-31] MEDS ORDERED: DEXTROSE 50% 25 GM/50 ML VIAL IV PRN (21:39)
[2021-07-31] MEDS ORDERED: SODIUM CHLORIDE 0.9% 250 ML IV ONE (22:24)
[2021-07-31] MEDS ORDERED: ENOXAPARIN 100 MG/ML SYRINGE SUBCUT STA (22:42)
[2021-08-01] MEDS: ZALEPLON 5 MG CAPSULE PO PRN (00:05)
[2021-08-01] MEDS: VANCOMYCIN INJ 2,000 MG in SODIUM CHLORIDE 0.9% 500 ML IV SCH ×2 (00:06→14:30)
[2021-08-01 01:16] LABS: Basophils % 0.2 % (0.0-0.8); Eosinophils % 0.1 % (0.00-10.9); Hematocrit 38.1 VOL% (42.0-52.0); Hemoglobin 12.1 GM/DL (14.0-18.0); Immature Granulocytes Absolute 0.35 #; Lymphocytes # 0.8 10*3/uL (1.4-4.0); Lymphocytes % 4.4 % (21.2-54.2); Mean Corpuscular HGB Conc 31.8 GM/DL (32-36); Mean Corpuscular Volume 89.9 FL (87-102); Mean Platelet Volume 9.5 FL (9.6-12.0); Monocytes % 1.5 % (1.7-12.7); Neutrophils % 91.8 % (38.7-73.9); Platelet Count 308 T/CUMM (130-400); Red Blood Count 4.24 MC/CUMM (3.8-5.5); White Blood Count 17.9 T/CUMM (4-12)
[2021-08-01 01:23] LABS: Calcium 9.1 MG/DL (8.5-10.1); Osmolality,Calculated 269.4 MOS/KG (273-304); Potassium 3.9 MMOL/L (3.5-5.1)
[2021-08-01] MEDS: ALBUTEROL/IPRATROPIUM 3 ML NEB RESP TX SCH ×4 (01:25→20:24)
[2021-08-01 01:31] LABS: Eosinophils 1 % (0-10); Lymphocytes 6 % (20-55); Platelet Estimate Adequate; Segmented Neutrophils 91 % (50-85); Total Cells Counted 100
[2021-08-01] MEDS: PIPERACILLIN/TAZOBACTAM 3,375 MG in SODIUM CHLORIDE 0.9% 100 ML IV SCH ×3 (04:09→21:33)
[2021-08-01] MEDS ORDERED: DOCUSATE SODIUM 100 MG CAPSULE PO SCH (09:00)
[2021-08-01] MEDS: methylPREDNISolone SOD SUC 40 MG/1 ML VIAL IV SCH ×2 (09:29→21:30)
[2021-08-01] MEDS: PANTOPRAZOLE 40 MG TABLET PO SCH (09:29)
[2021-08-01] MEDS: INSULIN REGULAR 100 UNIT/ML SUBCUT SCH ×4 (09:30→21:32)
[2021-08-01] MEDS: ROSUVASTATIN 10 MG TABLET PO SCH (21:27)
[2021-08-01] MEDS: METOPROLOL TARTRATE 25 MG TABLET PO SCH (21:27)
[2021-08-01] MEDS: ASCORBIC ACID 500 MG TABLET PO SCH (21:27)
[2021-08-01] MEDS: ENOXAPARIN 40 MG/0.4 ML SYRINGE SUBCUT SCH (21:29)
[2021-08-02] MEDS: ALBUTEROL/IPRATROPIUM 3 ML NEB RESP TX SCH ×4 (00:55→20:00)
[2021-08-02] MEDS: VANCOMYCIN INJ 2,000 MG in SODIUM CHLORIDE 0.9% 500 ML IV SCH ×2 (01:26→11:59)
[2021-08-02] MEDS: PIPERACILLIN/TAZOBACTAM 3,375 MG in SODIUM CHLORIDE 0.9% 100 ML IV SCH ×3 (03:48→21:04)
[2021-08-02 04:47] LABS: Basophils % 0.1 % (0.0-0.8); Hematocrit 35.9 VOL% (42.0-52.0); Hemoglobin 10.8 GM/DL (14.0-18.0); Immature Granulocytes % 0.7 %; Immature Granulocytes Absolute 0.11 #; Lymphocytes # 1.3 10*3/uL (1.4-4.0); Lymphocytes % 8.3 % (21.2-54.2); Mean Corpuscular HGB Conc 30.1 GM/DL (32-36); Mean Corpuscular Volume 93.5 FL (87-102); Mean Platelet Volume 9.7 FL (9.6-12.0); Monocytes % 4.1 % (1.7-12.7); Neutrophils % 86.8 % (38.7-73.9); Platelet Count 291 T/CUMM (130-400); Red Blood Count 3.84 MC/CUMM (3.8-5.5); Red Cell Distribution Width 16.4 % (9.3-17.3); White Blood Count 15.1 T/CUMM (4-12)
[2021-08-02 05:07] LABS: Osmolality,Calculated 279.7 MOS/KG (273-304); Potassium 4.3 MMOL/L (3.5-5.1)
[2021-08-02] MEDS: PANTOPRAZOLE 40 MG TABLET PO SCH (08:32)
[2021-08-02] MEDS: ASCORBIC ACID 500 MG TABLET PO SCH ×2 (08:32→21:04)
[2021-08-02] MEDS: DOCUSATE SODIUM 100 MG CAPSULE PO SCH (08:33)
[2021-08-02] MEDS: ASPIRIN EC 81 MG TABLET PO SCH (08:33)
[2021-08-02] MEDS: methylPREDNISolone SOD SUC 40 MG/1 ML VIAL IV SCH ×2 (08:33→21:04)
[2021-08-02] MEDS: INSULIN REGULAR 100 UNIT/ML SUBCUT SCH ×4 (08:34→21:04)
[2021-08-02] MEDS: METOPROLOL TARTRATE 25 MG TABLET PO SCH ×2 (08:34→21:04)
[2021-08-02] MEDS: POLYETHYLENE GLYCOL POWDER 17 GM PACK PO SCH (11:20)
[2021-08-02] MEDS: guaiFENesin/DM ER 600-30 MG TABLET PO PRN (16:01)
[2021-08-02] MEDS: ENOXAPARIN 40 MG/0.4 ML SYRINGE SUBCUT SCH (21:03)
[2021-08-02] MEDS: ROSUVASTATIN 10 MG TABLET PO SCH (21:04)
[2021-08-03] MEDS: ZALEPLON 5 MG CAPSULE PO PRN (00:58)
[2021-08-03] MEDS: ALBUTEROL/IPRATROPIUM 3 ML NEB RESP TX SCH ×4 (03:34→19:38)
[2021-08-03 04:53] LABS: Basophils % 0.1 % (0.0-0.8); Hemoglobin 11.1 GM/DL (14.0-18.0); Immature Granulocytes % 0.6 %; Immature Granulocytes Absolute 0.07 #; Lymphocytes # 1.4 10*3/uL (1.4-4.0); Lymphocytes % 12.1 % (21.2-54.2); Mean Corpuscular Volume 93.9 FL (87-102); Mean Platelet Volume 9.2 FL (9.6-12.0); Neutrophils % 81.2 % (38.7-73.9); Platelet Count 262 T/CUMM (130-400); Red Blood Count 3.94 MC/CUMM (3.8-5.5); Red Cell Distribution Width 16.2 % (9.3-17.3); White Blood Count 11.7 T/CUMM (4-12)
[2021-08-03 05:10] LABS: Calcium 8.6 MG/DL (8.5-10.1); Osmolality,Calculated 277.7 MOS/KG (273-304); Potassium 4.7 MMOL/L (3.5-5.1)
[2021-08-03] MEDS: PIPERACILLIN/TAZOBACTAM 3,375 MG in SODIUM CHLORIDE 0.9% 100 ML IV SCH ×3 (05:50→20:48)
[2021-08-03] MEDS: INSULIN REGULAR 100 UNIT/ML SUBCUT SCH ×4 (07:50→20:11)
[2021-08-03] MEDS: POLYETHYLENE GLYCOL POWDER 17 GM PACK PO SCH (08:42)
[2021-08-03] MEDS: METOPROLOL TARTRATE 25 MG TABLET PO SCH ×2 (08:42→20:54)
[2021-08-03] MEDS: ASCORBIC ACID 500 MG TABLET PO SCH ×2 (08:43→20:55)
[2021-08-03] MEDS: ASPIRIN EC 81 MG TABLET PO SCH (08:43)
[2021-08-03] MEDS: PANTOPRAZOLE 40 MG TABLET PO SCH (08:44)
[2021-08-03] MEDS: methylPREDNISolone SOD SUC 40 MG/1 ML VIAL IV SCH ×2 (08:44→20:57)
[2021-08-03] MEDS: DOCUSATE SODIUM 100 MG CAPSULE PO SCH (08:48)
[2021-08-03] MEDS: guaiFENesin/DM ER 600-30 MG TABLET PO PRN (10:47)
[2021-08-03] MEDS: guaiFENesin/DM ER 600-30 MG TABLET PO SCH ×3 (10:59→20:56)
[2021-08-03] MEDS: LACTULOSE 20 GM/30 ML UDCUP PO PRN (11:28)
[2021-08-03] MEDS: ROSUVASTATIN 10 MG TABLET PO SCH (20:55)
[2021-08-03] MEDS: ENOXAPARIN 40 MG/0.4 ML SYRINGE SUBCUT SCH (20:56)
[2021-08-04] MEDS: ALBUTEROL/IPRATROPIUM 3 ML NEB RESP TX SCH ×4 (01:45→19:00)
[2021-08-04] MEDS: PIPERACILLIN/TAZOBACTAM 3,375 MG in SODIUM CHLORIDE 0.9% 100 ML IV SCH ×3 (04:28→21:18)
[2021-08-04 04:45] LABS: Basophils % 0.2 % (0.0-0.8); Hematocrit 37.6 VOL% (42.0-52.0); Hemoglobin 11.5 GM/DL (14.0-18.0); Immature Granulocytes % 0.6 %; Immature Granulocytes Absolute 0.05 #; Lymphocytes # 1.7 10*3/uL (1.4-4.0); Lymphocytes % 20.3 % (21.2-54.2); Mean Corpuscular HGB Conc 30.6 GM/DL (32-36); Mean Corpuscular Volume 92.4 FL (87-102); Mean Platelet Volume 9.4 FL (9.6-12.0); Neutrophils % 71.9 % (38.7-73.9); Platelet Count 269 T/CUMM (130-400); Red Blood Count 4.07 MC/CUMM (3.8-5.5); Red Cell Distribution Width 15.9 % (9.3-17.3); White Blood Count 8.3 T/CUMM (4-12)
[2021-08-04 05:00] LABS: Osmolality,Calculated 278.7 MOS/KG (273-304); Potassium 4.5 MMOL/L (3.5-5.1)
[2021-08-04] MEDS: INSULIN REGULAR 100 UNIT/ML SUBCUT SCH ×4 (07:49→21:57)
[2021-08-04] MEDS: FLUCONAZOLE INJ 200 MG/100 ML PREMIX IV SCH (08:51)
[2021-08-04] MEDS: METOPROLOL TARTRATE 25 MG TABLET PO SCH ×2 (08:53→21:17)
[2021-08-04] MEDS: DOCUSATE SODIUM 100 MG CAPSULE PO SCH (08:54)
[2021-08-04] MEDS: ASPIRIN EC 81 MG TABLET PO SCH (08:54)
[2021-08-04] MEDS: POLYETHYLENE GLYCOL POWDER 17 GM PACK PO SCH (08:54)
[2021-08-04] MEDS: methylPREDNISolone SOD SUC 40 MG/1 ML VIAL IV SCH ×2 (08:54→21:18)
[2021-08-04] MEDS: guaiFENesin/DM ER 600-30 MG TABLET PO SCH ×3 (08:54→21:16)
[2021-08-04] MEDS: PANTOPRAZOLE 40 MG TABLET PO SCH (08:54)
[2021-08-04] MEDS: ASCORBIC ACID 500 MG TABLET PO SCH ×2 (08:54→21:17)
[2021-08-04] MEDS: FUROSEMIDE 40 MG/4 ML VIAL IV SCH (10:00)
[2021-08-04] MEDS ORDERED: ALBUTEROL 2.5 MG/3 ML NEB RESP TX PRN (11:40)
[2021-08-04] MEDS: ACETYLCYSTEINE 20% 800 MG/4 ML VIAL RESP TX SCH (15:50)
[2021-08-04] MEDS: BUDESONIDE 0.5 MG/2 ML NEB RESP TX SCH (19:00)
[2021-08-04] MEDS: ROSUVASTATIN 10 MG TABLET PO SCH (21:17)
[2021-08-04] MEDS: ENOXAPARIN 40 MG/0.4 ML SYRINGE SUBCUT SCH (21:18)
[2021-08-04] MEDS: LACTULOSE 20 GM/30 ML UDCUP PO PRN (21:59)
[2021-08-05] MEDS: ACETYLCYSTEINE 20% 800 MG/4 ML VIAL RESP TX SCH ×3 (01:30→16:39)
[2021-08-05] MEDS: ALBUTEROL/IPRATROPIUM 3 ML NEB RESP TX SCH ×4 (01:30→19:30)
[2021-08-05] MEDS: PIPERACILLIN/TAZOBACTAM 3,375 MG in SODIUM CHLORIDE 0.9% 100 ML IV SCH ×3 (04:18→21:43)
[2021-08-05 06:29] LABS: Basophils % 0.2 % (0.0-0.8); Hematocrit 39.9 VOL% (42.0-52.0); Hemoglobin 12.7 GM/DL (14.0-18.0); Immature Granulocytes % 0.8 %; Immature Granulocytes Absolute 0.07 #; Lymphocytes # 1.5 10*3/uL (1.4-4.0); Lymphocytes % 18.2 % (21.2-54.2); Mean Corpuscular HGB Conc 31.8 GM/DL (32-36); Mean Corpuscular Volume 90.1 FL (87-102); Mean Platelet Volume 9.6 FL (9.6-12.0); Monocytes % 7.2 % (1.7-12.7); Neutrophils % 73.6 % (38.7-73.9); Platelet Count 320 T/CUMM (130-400); Red Blood Count 4.43 MC/CUMM (3.8-5.5); Red Cell Distribution Width 15.4 % (9.3-17.3); White Blood Count 8.4 T/CUMM (4-12)
[2021-08-05 06:47] LABS: Calcium 9.1 MG/DL (8.5-10.1); Osmolality,Calculated 278.7 MOS/KG (273-304); Potassium 4.4 MMOL/L (3.5-5.1)
[2021-08-05] MEDS: BUDESONIDE 0.5 MG/2 ML NEB RESP TX SCH ×2 (06:55→19:30)
[2021-08-05] MEDS ORDERED: hydrALAZINE 20 MG/1 ML VIAL IV PRN (08:35)
[2021-08-05] MEDS: hydroCHLOROthiazide 25 MG TABLET PO SCH (09:47)
[2021-08-05] MEDS: FUROSEMIDE 40 MG/4 ML VIAL IV SCH (09:47)
[2021-08-05] MEDS: PANTOPRAZOLE 40 MG TABLET PO SCH (09:49)
[2021-08-05] MEDS: ASCORBIC ACID 500 MG TABLET PO SCH ×2 (09:49→21:41)
[2021-08-05] MEDS: POLYETHYLENE GLYCOL POWDER 17 GM PACK PO SCH (09:49)
[2021-08-05] MEDS: metFORMIN 500 MG TABLET PO SCH (09:50)
[2021-08-05] MEDS: METOPROLOL TARTRATE 25 MG TABLET PO SCH ×2 (09:51→21:42)
[2021-08-05] MEDS: DOCUSATE SODIUM 100 MG CAPSULE PO SCH (09:51)
[2021-08-05] MEDS: ASPIRIN EC 81 MG TABLET PO SCH (09:51)
[2021-08-05] MEDS: guaiFENesin/DM ER 600-30 MG TABLET PO SCH ×3 (09:53→21:41)
[2021-08-05] MEDS: INSULIN REGULAR 100 UNIT/ML SUBCUT SCH ×4 (09:53→22:03)
[2021-08-05] MEDS: methylPREDNISolone SOD SUC 40 MG/1 ML VIAL IV SCH (09:55)
[2021-08-05] MEDS: FLUCONAZOLE INJ 200 MG/100 ML PREMIX IV SCH (10:07)
[2021-08-05] MEDS: predniSONE 10 MG TABLET PO SCH (14:41)
[2021-08-05] MEDS ORDERED: VANCOMYCIN INJ 1,000 MG in SODIUM CHLORIDE 0.9% 250 ML IV ONE (16:01)
[2021-08-05] MEDS: VANCOMYCIN INJ 2,000 MG in SODIUM CHLORIDE 0.9% 500 ML IV SCH (18:15)
[2021-08-05] MEDS: ROSUVASTATIN 10 MG TABLET PO SCH (21:41)
[2021-08-05] MEDS: ENOXAPARIN 40 MG/0.4 ML SYRINGE SUBCUT SCH (21:43)
[2021-08-06] MEDS: ACETYLCYSTEINE 20% 800 MG/4 ML VIAL RESP TX SCH ×3 (00:25→13:00)
[2021-08-06] MEDS: ALBUTEROL/IPRATROPIUM 3 ML NEB RESP TX SCH ×4 (00:25→20:12)
[2021-08-06] MEDS: PIPERACILLIN/TAZOBACTAM 3,375 MG in SODIUM CHLORIDE 0.9% 100 ML IV SCH ×3 (04:17→21:17)
[2021-08-06 05:14] LABS: Basophils # 0.1 10*3/uL (0.0-0.2); Basophils % 0.5 % (0.0-0.8); Eosinophils # 0.2 10*3/uL (0.0-0.87); Eosinophils % 1.4 % (0.00-10.9); Hematocrit 42.9 VOL% (42.0-52.0); Hemoglobin 13.4 GM/DL (14.0-18.0); Immature Granulocytes % 0.5 %; Immature Granulocytes Absolute 0.05 #; Lymphocytes # 2.7 10*3/uL (1.4-4.0); Lymphocytes % 26.3 % (21.2-54.2); Mean Corpuscular HGB Conc 31.2 GM/DL (32-36); Mean Corpuscular Volume 89.6 FL (87-102); Mean Platelet Volume 9.6 FL (9.6-12.0); Monocytes % 9.1 % (1.7-12.7); Neutrophils % 62.2 % (38.7-73.9); Platelet Count 336 T/CUMM (130-400); Red Blood Count 4.79 MC/CUMM (3.8-5.5); Red Cell Distribution Width 15.5 % (9.3-17.3); White Blood Count 10.4 T/CUMM (4-12)
[2021-08-06 05:43] LABS: Calcium 9.3 MG/DL (8.5-10.1); Osmolality,Calculated 270.2 MOS/KG (273-304); Potassium 3.9 MMOL/L (3.5-5.1)
[2021-08-06] MEDS: BUDESONIDE 0.5 MG/2 ML NEB RESP TX SCH ×2 (07:03→20:12)
[2021-08-06] MEDS: predniSONE 10 MG TABLET PO SCH (09:09)
[2021-08-06] MEDS: POLYETHYLENE GLYCOL POWDER 17 GM PACK PO SCH (09:09)
[2021-08-06] MEDS: ASCORBIC ACID 500 MG TABLET PO SCH ×2 (09:10→21:18)
[2021-08-06] MEDS: ASPIRIN EC 81 MG TABLET PO SCH (09:10)
[2021-08-06] MEDS: DOCUSATE SODIUM 100 MG CAPSULE PO SCH (09:10)
[2021-08-06] MEDS: METOPROLOL TARTRATE 25 MG TABLET PO SCH ×2 (09:10→21:18)
[2021-08-06] MEDS: PANTOPRAZOLE 40 MG TABLET PO SCH (09:10)
[2021-08-06] MEDS: metFORMIN 500 MG TABLET PO SCH (09:10)
[2021-08-06] MEDS: guaiFENesin/DM ER 600-30 MG TABLET PO SCH ×3 (09:10→21:18)
[2021-08-06] MEDS: FUROSEMIDE 40 MG/4 ML VIAL IV SCH (09:11)
[2021-08-06] MEDS: hydroCHLOROthiazide 25 MG TABLET PO SCH (09:11)
[2021-08-06] MEDS: INSULIN REGULAR 100 UNIT/ML SUBCUT SCH ×4 (09:12→20:29)
[2021-08-06] MEDS: FLUCONAZOLE INJ 200 MG/100 ML PREMIX IV SCH (09:12)
[2021-08-06] MEDS: LACTULOSE 20 GM/30 ML UDCUP PO PRN ×2 (09:23→21:17)
[2021-08-06] MEDS: VANCOMYCIN INJ 2,000 MG in SODIUM CHLORIDE 0.9% 500 ML IV SCH ×2 (09:25→12:32)
[2021-08-06] MEDS ORDERED: CLORAZEPATE 7.5 MG TABLET PO PRN (09:42)
[2021-08-06] MEDS: ENOXAPARIN 40 MG/0.4 ML SYRINGE SUBCUT SCH (21:17)
[2021-08-06] MEDS: ROSUVASTATIN 10 MG TABLET PO SCH (21:18)
[2021-08-07] MEDS: VANCOMYCIN INJ 2,000 MG in SODIUM CHLORIDE 0.9% 500 ML IV SCH ×2 (01:32→11:10)
[2021-08-07] MEDS: ACETYLCYSTEINE 20% 800 MG/4 ML VIAL RESP TX SCH ×3 (01:48→13:32)
[2021-08-07] MEDS: ALBUTEROL/IPRATROPIUM 3 ML NEB RESP TX SCH ×4 (01:48→19:10)
[2021-08-07] MEDS: LACTULOSE 20 GM/30 ML UDCUP PO PRN ×2 (04:43→13:17)
[2021-08-07] MEDS: PIPERACILLIN/TAZOBACTAM 3,375 MG in SODIUM CHLORIDE 0.9% 100 ML IV SCH ×3 (05:11→20:40)
[2021-08-07 05:33] LABS: Basophils # 0.1 10*3/uL (0.0-0.2); Basophils % 0.5 % (0.0-0.8); Eosinophils # 0.3 10*3/uL (0.0-0.87); Eosinophils % 2.5 % (0.00-10.9); Hematocrit 43.7 VOL% (42.0-52.0); Hemoglobin 13.6 GM/DL (14.0-18.0); Immature Granulocytes % 0.6 %; Immature Granulocytes Absolute 0.08 #; Lymphocytes # 3.7 10*3/uL (1.4-4.0); Lymphocytes % 28.8 % (21.2-54.2); Mean Corpuscular HGB Conc 31.1 GM/DL (32-36); Mean Corpuscular Volume 89.5 FL (87-102); Mean Platelet Volume 9.7 FL (9.6-12.0); Monocytes % 8.2 % (1.7-12.7); Neutrophils % 59.4 % (38.7-73.9); Platelet Count 350 T/CUMM (130-400); Red Blood Count 4.88 MC/CUMM (3.8-5.5); Red Cell Distribution Width 15.8 % (9.3-17.3); White Blood Count 12.9 T/CUMM (4-12)
[2021-08-07 05:58] LABS: Calcium 9.2 MG/DL (8.5-10.1)
[2021-08-07] MEDS: BUDESONIDE 0.5 MG/2 ML NEB RESP TX SCH ×2 (07:10→20:00)
[2021-08-07] MEDS: ASCORBIC ACID 500 MG TABLET PO SCH ×2 (08:25→20:29)
[2021-08-07] MEDS: PANTOPRAZOLE 40 MG TABLET PO SCH (08:25)
[2021-08-07] MEDS: METOPROLOL TARTRATE 25 MG TABLET PO SCH ×2 (08:25→20:30)
[2021-08-07] MEDS: guaiFENesin/DM ER 600-30 MG TABLET PO SCH ×3 (08:25→20:29)
[2021-08-07] MEDS: DOCUSATE SODIUM 100 MG CAPSULE PO SCH ×2 (08:25→20:29)
[2021-08-07] MEDS: hydroCHLOROthiazide 25 MG TABLET PO SCH (08:25)
[2021-08-07] MEDS: predniSONE 10 MG TABLET PO SCH (08:26)
[2021-08-07] MEDS: ASPIRIN EC 81 MG TABLET PO SCH (08:26)
[2021-08-07] MEDS: metFORMIN 500 MG TABLET PO SCH (08:26)
[2021-08-07] MEDS: FUROSEMIDE 40 MG/4 ML VIAL IV SCH (08:26)
[2021-08-07] MEDS: POLYETHYLENE GLYCOL POWDER 17 GM PACK PO SCH (08:26)
[2021-08-07] MEDS: FLUCONAZOLE INJ 200 MG/100 ML PREMIX IV SCH (08:27)
[2021-08-07] MEDS: INSULIN REGULAR 100 UNIT/ML SUBCUT SCH ×4 (09:20→21:01)
[2021-08-07] MEDS ORDERED: BISACODYL 10 MG SUPP RECTAL ONE (16:26)
[2021-08-07] MEDS: ROSUVASTATIN 10 MG TABLET PO SCH (20:29)
[2021-08-07] MEDS: ENOXAPARIN 40 MG/0.4 ML SYRINGE SUBCUT SCH (20:30)
[2021-08-08] MEDS: VANCOMYCIN INJ 2,000 MG in SODIUM CHLORIDE 0.9% 500 ML IV SCH ×2 (00:29→14:31)
[2021-08-08] MEDS: PIPERACILLIN/TAZOBACTAM 3,375 MG in SODIUM CHLORIDE 0.9% 100 ML IV SCH ×2 (05:27→12:10)
[2021-08-08 05:35] LABS: Basophils # 0.1 10*3/uL (0.0-0.2); Basophils % 0.5 % (0.0-0.8); Eosinophils # 0.3 10*3/uL (0.0-0.87); Eosinophils % 2.4 % (0.00-10.9); Hematocrit 42.8 VOL% (42.0-52.0); Hemoglobin 13.2 GM/DL (14.0-18.0); Immature Granulocytes % 0.8 %; Immature Granulocytes Absolute 0.08 #; Lymphocytes # 2.6 10*3/uL (1.4-4.0); Mean Corpuscular HGB Conc 30.8 GM/DL (32-36); Mean Corpuscular Volume 90.7 FL (87-102); Mean Platelet Volume 9.8 FL (9.6-12.0); Monocytes % 8.6 % (1.7-12.7); Neutrophils % 62.7 % (38.7-73.9); Platelet Count 310 T/CUMM (130-400); Red Blood Count 4.72 MC/CUMM (3.8-5.5); Red Cell Distribution Width 15.7 % (9.3-17.3); White Blood Count 10.4 T/CUMM (4-12)
[2021-08-08 06:04] LABS: Calcium 9.3 MG/DL (8.5-10.1); Osmolality,Calculated 272.1 MOS/KG (273-304); Potassium 4.1 MMOL/L (3.5-5.1)
[2021-08-08] MEDS: BUDESONIDE 0.5 MG/2 ML NEB RESP TX SCH ×2 (08:00→19:51)
[2021-08-08] MEDS: ALBUTEROL/IPRATROPIUM 3 ML NEB RESP TX SCH ×5 (08:00→23:20)
[2021-08-08] MEDS: ACETYLCYSTEINE 20% 800 MG/4 ML VIAL RESP TX SCH ×4 (08:00→23:20)
[2021-08-08] MEDS: POLYETHYLENE GLYCOL POWDER 17 GM PACK PO SCH (09:28)
[2021-08-08] MEDS: ASPIRIN EC 81 MG TABLET PO SCH (09:28)
[2021-08-08] MEDS: FLUCONAZOLE INJ 200 MG/100 ML PREMIX IV SCH (09:28)
[2021-08-08] MEDS: PANTOPRAZOLE 40 MG TABLET PO SCH (09:29)
[2021-08-08] MEDS: guaiFENesin/DM ER 600-30 MG TABLET PO SCH ×3 (09:29→21:53)
[2021-08-08] MEDS: DOCUSATE SODIUM 100 MG CAPSULE PO SCH ×2 (09:29→21:52)
[2021-08-08] MEDS: FUROSEMIDE 40 MG/4 ML VIAL IV SCH (09:29)
[2021-08-08] MEDS: METOPROLOL TARTRATE 25 MG TABLET PO SCH ×2 (09:29→21:52)
[2021-08-08] MEDS: metFORMIN 500 MG TABLET PO SCH (09:29)
[2021-08-08] MEDS: INSULIN REGULAR 100 UNIT/ML SUBCUT SCH ×3 (09:32→16:09)
[2021-08-08] MEDS: predniSONE 10 MG TABLET PO SCH (09:36)
[2021-08-08] MEDS: ASCORBIC ACID 500 MG TABLET PO SCH ×2 (09:37→21:52)
[2021-08-08] MEDS: hydroCHLOROthiazide 25 MG TABLET PO SCH (09:37)
[2021-08-08] MEDS: ENOXAPARIN 40 MG/0.4 ML SYRINGE SUBCUT SCH (21:53)
[2021-08-08] MEDS: ROSUVASTATIN 10 MG TABLET PO SCH (21:53)
[2021-08-09] MEDS: INSULIN REGULAR 100 UNIT/ML SUBCUT SCH ×3 (00:38→11:58)
[2021-08-09] MEDS: VANCOMYCIN INJ 2,000 MG in SODIUM CHLORIDE 0.9% 500 ML IV SCH ×2 (01:23→15:08)
[2021-08-09 05:16] LABS: Basophils # 0.1 10*3/uL (0.0-0.2); Basophils % 0.6 % (0.0-0.8); Eosinophils # 0.3 10*3/uL (0.0-0.87); Eosinophils % 2.8 % (0.00-10.9); Hematocrit 43.5 VOL% (42.0-52.0); Hemoglobin 13.3 GM/DL (14.0-18.0); Lymphocytes % 28.5 % (21.2-54.2); Mean Corpuscular HGB Conc 30.6 GM/DL (32-36); Mean Corpuscular Volume 90.2 FL (87-102); Mean Platelet Volume 9.9 FL (9.6-12.0); Neutrophils % 59.1 % (38.7-73.9); Platelet Count 311 T/CUMM (130-400); Red Blood Count 4.82 MC/CUMM (3.8-5.5); Red Cell Distribution Width 15.6 % (9.3-17.3); White Blood Count 10.5 T/CUMM (4-12)
[2021-08-09 05:41] LABS: Calcium 9.5 MG/DL (8.5-10.1); Osmolality,Calculated 275.8 MOS/KG (273-304); Potassium 3.8 MMOL/L (3.5-5.1)
[2021-08-09] MEDS: BUDESONIDE 0.5 MG/2 ML NEB RESP TX SCH (07:29)
[2021-08-09] MEDS: ALBUTEROL/IPRATROPIUM 3 ML NEB RESP TX SCH (07:29)
[2021-08-09] MEDS: ACETYLCYSTEINE 20% 800 MG/4 ML VIAL RESP TX SCH (07:29)
[2021-08-09] MEDS ORDERED: predniSONE 5 MG TABLET PO SCH (09:00)
[2021-08-09] MEDS: FLUCONAZOLE INJ 200 MG/100 ML PREMIX IV SCH (09:07)
[2021-08-09] MEDS: POLYETHYLENE GLYCOL POWDER 17 GM PACK PO SCH (09:07)
[2021-08-09] MEDS: FUROSEMIDE 40 MG/4 ML VIAL IV SCH (09:08)
[2021-08-09] MEDS: metFORMIN 500 MG TABLET PO SCH (09:09)
[2021-08-09] MEDS: ASCORBIC ACID 500 MG TABLET PO SCH (09:09)
[2021-08-09] MEDS: DOCUSATE SODIUM 100 MG CAPSULE PO SCH (09:09)
[2021-08-09] MEDS: METOPROLOL TARTRATE 25 MG TABLET PO SCH (09:09)
[2021-08-09] MEDS: hydroCHLOROthiazide 25 MG TABLET PO SCH (09:10)
[2021-08-09] MEDS: guaiFENesin/DM ER 600-30 MG TABLET PO SCH ×2 (09:10→15:11)
[2021-08-09] MEDS: ASPIRIN EC 81 MG TABLET PO SCH (09:10)
[2021-08-09] MEDS: PANTOPRAZOLE 40 MG TABLET PO SCH (09:10)
[2021-08-09 12:08] VITALS: BP 104/67
[2021-08-09] MEDS ORDERED: AMIODARONE 200 MG TABLET PO SCH (12:38)
[2021-08-09] MEDS ORDERED: PIPERACILLIN/TAZOBACTAM 3,375 MG in SODIUM CHLORIDE 0.9% 100 ML IV SCH (13:00)
== END 2021-08-09 15:31 | DRG 193 ==
LOC: EDUNIT# → EDBD → N.ED 18:57 → SUATTDRO 21:39 → N.EDINP 21:39 → N.TELES 23:37 → N.ICU 08-03 00:17 → N.TELES 08-04 22:02
PROVIDERS: ADMIT Internal Medicine; ATTEND Internal Medicine Nephrology

== ENCOUNTER 2021-10-01 17:56 | Inpatient (IN) ==
[2021-10-02] MEDS ORDERED: VANCOMYCIN INJ 1,500 MG in SODIUM CHLORIDE 0.9% 500 ML IV STA (08:56)
[2021-10-02 09:50] LABS: Basophils # 0.1 10*3/uL (0.0-0.2); Basophils % 1.1 % (0.0-0.8); Eosinophils # 0.1 10*3/uL (0.0-0.87); Eosinophils % 1.3 % (0.00-10.9); Hematocrit 50.5 VOL% (42.0-52.0); Hemoglobin 15.6 GM/DL (14.0-18.0); Immature Granulocytes % 0.4 %; Immature Granulocytes Absolute 0.03 #; Lymphocytes % 27.6 % (21.2-54.2); Mean Corpuscular HGB Conc 30.9 GM/DL (32-36); Mean Platelet Volume 10.2 FL (9.6-12.0); Monocytes % 7.5 % (1.7-12.7); Neutrophils % 62.1 % (38.7-73.9); Platelet Count 295 T/CUMM (130-400); Red Blood Count 5.87 MC/CUMM (3.8-5.5); Red Cell Distribution Width 14.9 % (9.3-17.3); White Blood Count 7.1 T/CUMM (4-12)
[2021-10-02 10:05] LABS: Albumin 3.7 G/DL (3.4-5.0); Bilirubin,Total 0.4 MG/DL (0.20-1.00); Calcium 9.8 MG/DL (8.5-10.1); Potassium 3.6 MMOL/L (3.5-5.1)
[2021-10-02 10:35] LABS: Bilirubin,Urine Negative (Negative); Blood, Urine Negative (Negative); Glucose,Urine (UA) Negative (Negative); Ketones,Urine Negative (Negative); Mucus,Urine Occasional /LPF (Occasional); Nitrite,Urine Negative (Negative); Protein,Urine Negative; RBC,Urine 2 /HPF (0-4); Urine Appearance CLEAR (Clear); Urine Color Yellow (Yellow); Urine Specific Gravity 1.013 (1.001-1.035); Urine Urobilinogen < 2.0 EU/DL (<2.0)
[2021-10-02] MEDS ORDERED: GLUCAGON 1 MG VIAL IM PRN (12:14)
[2021-10-02] MEDS ORDERED: HYDROmorphone 2 MG/1 ML VIAL IV PRN (12:14)
[2021-10-02] MEDS ORDERED: ONDANSETRON 4 MG/2 ML VIAL IV PRN (12:14)
[2021-10-02] MEDS ORDERED: DEXTROSE 50% 25 GM/50 ML SYRINGE IV PRN (12:14)
[2021-10-02] MEDS ORDERED: ACETAMINOPHEN 325 MG TABLET PO PRN (12:14)
[2021-10-02] MEDS: PANTOPRAZOLE 40 MG TABLET PO SCH (12:40)
[2021-10-02] MEDS: SODIUM CHLORIDE 0.9% 1,000 ML IV SCH ×2 (12:40→23:00)
[2021-10-02] MEDS: DOCUSATE SODIUM 100 MG CAPSULE PO SCH ×2 (12:40→20:17)
[2021-10-02] MEDS: INSULIN LISPRO 100 UNIT/ML SUBCUT SCH ×3 (12:55→20:26)
[2021-10-02] MEDS: CLINDAMYCIN INJ 600 MG/50 ML PREMIX IV SCH ×2 (16:23→20:17)
[2021-10-02] MEDS: LORazepam 1 MG TABLET PO PRN (20:17)
[2021-10-02] MEDS: LEVOFLOXACIN 500 MG TABLET PO SCH (20:17)
[2021-10-03] MEDS: CLINDAMYCIN INJ 600 MG/50 ML PREMIX IV SCH ×4 (03:07→21:01)
[2021-10-03 05:49] LABS: Basophils # 0.1 10*3/uL (0.0-0.2); Eosinophils # 0.2 10*3/uL (0.0-0.87); Eosinophils % 2.6 % (0.00-10.9); Hematocrit 45.1 VOL% (42.0-52.0); Immature Granulocytes % 0.4 %; Immature Granulocytes Absolute 0.03 #; Lymphocytes # 2.8 10*3/uL (1.4-4.0); Lymphocytes % 33.6 % (21.2-54.2); Mean Corpuscular Volume 87.6 FL (87-102); Mean Platelet Volume 10.3 FL (9.6-12.0); Monocytes % 10.9 % (1.7-12.7); Neutrophils % 51.5 % (38.7-73.9); Platelet Count 259 T/CUMM (130-400); Red Blood Count 5.15 MC/CUMM (3.8-5.5); Red Cell Distribution Width 14.8 % (9.3-17.3); White Blood Count 8.3 T/CUMM (4-12)
[2021-10-03 06:09] LABS: Calcium 8.7 MG/DL (8.5-10.1); Osmolality,Calculated 280.4 MOS/KG (273-304); Potassium 3.8 MMOL/L (3.5-5.1)
[2021-10-03 06:12] LABS: Eosinophils 4 % (0-10); Lymphocytes 28 % (20-55); Platelet Estimate Adequate; Segmented Neutrophils 61 % (50-85); Total Cells Counted 100
[2021-10-03] MEDS: SODIUM CHLORIDE 0.9% 1,000 ML IV SCH ×2 (06:51→16:30)
[2021-10-03] MEDS: INSULIN LISPRO 100 UNIT/ML SUBCUT SCH ×4 (08:15→20:40)
[2021-10-03] MEDS: PANTOPRAZOLE 40 MG TABLET PO SCH ×3 (09:58→10:30)
[2021-10-03] MEDS: ASPIRIN EC 81 MG TABLET PO SCH (09:59)
[2021-10-03] MEDS: hydroCHLOROthiazide 25 MG TABLET PO SCH (09:59)
[2021-10-03] MEDS: METOPROLOL TARTRATE 25 MG TABLET PO SCH ×2 (09:59→21:02)
[2021-10-03] MEDS: AMIODARONE 200 MG TABLET PO SCH ×2 (09:59→21:02)
[2021-10-03] MEDS: DOCUSATE SODIUM 100 MG CAPSULE PO SCH ×2 (09:59→21:02)
[2021-10-03] MEDS: POLYETHYLENE GLYCOL POWDER 17 GM PACK PO SCH (10:00)
[2021-10-03] MEDS: LEVOFLOXACIN 500 MG TABLET PO SCH (21:02)
[2021-10-03] MEDS: ATORVASTATIN 40 MG TABLET PO SCH (21:03)
[2021-10-03] MEDS: LORazepam 1 MG TABLET PO PRN (21:15)
[2021-10-04] MEDS: CLINDAMYCIN INJ 600 MG/50 ML PREMIX IV SCH ×4 (03:09→21:30)
[2021-10-04] MEDS: SODIUM CHLORIDE 0.9% 1,000 ML IV SCH ×4 (03:09→20:36)
[2021-10-04 06:18] LABS: Basophils # 0.1 10*3/uL (0.0-0.2); Basophils % 0.9 % (0.0-0.8); Eosinophils # 0.3 10*3/uL (0.0-0.87); Eosinophils % 3.4 % (0.00-10.9); Hematocrit 44.2 VOL% (42.0-52.0); Hemoglobin 13.8 GM/DL (14.0-18.0); Immature Granulocytes % 0.5 %; Immature Granulocytes Absolute 0.04 #; Lymphocytes # 2.6 10*3/uL (1.4-4.0); Lymphocytes % 34.7 % (21.2-54.2); Mean Corpuscular HGB Conc 31.2 GM/DL (32-36); Mean Corpuscular Volume 86.5 FL (87-102); Mean Platelet Volume 10.1 FL (9.6-12.0); Monocytes % 8.6 % (1.7-12.7); Neutrophils % 51.9 % (38.7-73.9); Platelet Count 248 T/CUMM (130-400); Red Blood Count 5.11 MC/CUMM (3.8-5.5); Red Cell Distribution Width 14.6 % (9.3-17.3); White Blood Count 7.6 T/CUMM (4-12)
[2021-10-04] MEDS: PANTOPRAZOLE 40 MG TABLET PO SCH (06:32)
[2021-10-04 06:34] LABS: Osmolality,Calculated 275.5 MOS/KG (273-304)
[2021-10-04 06:36] LABS: Platelet Estimate Normal
[2021-10-04 06:37] LABS: Anisocytosis 1+
[2021-10-04] MEDS: INSULIN LISPRO 100 UNIT/ML SUBCUT SCH ×4 (07:31→21:32)
[2021-10-04] MEDS: METOPROLOL TARTRATE 25 MG TABLET PO SCH ×2 (09:43→21:30)
[2021-10-04] MEDS: hydroCHLOROthiazide 25 MG TABLET PO SCH (09:43)
[2021-10-04] MEDS: ASPIRIN EC 81 MG TABLET PO SCH (09:44)
[2021-10-04] MEDS: DOCUSATE SODIUM 100 MG CAPSULE PO SCH ×3 (09:44→21:31)
[2021-10-04] MEDS: AMIODARONE 200 MG TABLET PO SCH ×2 (09:44→21:31)
[2021-10-04] MEDS: POLYETHYLENE GLYCOL POWDER 17 GM PACK PO SCH (09:44)
[2021-10-04] MEDS: CITALOPRAM 40 MG TABLET PO SCH (09:44)
[2021-10-04] MEDS: ATORVASTATIN 40 MG TABLET PO SCH (21:30)
[2021-10-04] MEDS: LEVOFLOXACIN 500 MG TABLET PO SCH (21:31)
[2021-10-04] MEDS: LORazepam 1 MG TABLET PO PRN (21:31)
[2021-10-05] MEDS: CLINDAMYCIN INJ 600 MG/50 ML PREMIX IV SCH ×4 (03:20→21:05)
[2021-10-05] MEDS: SODIUM CHLORIDE 0.9% 1,000 ML IV SCH ×2 (05:54→23:06)
[2021-10-05] MEDS: PANTOPRAZOLE 40 MG TABLET PO SCH (05:55)
[2021-10-05 05:58] LABS: Calcium 8.5 MG/DL (8.5-10.1); Osmolality,Calculated 275.5 MOS/KG (273-304); Potassium 3.9 MMOL/L (3.5-5.1)
[2021-10-05] MEDS: POLYETHYLENE GLYCOL POWDER 17 GM PACK PO SCH (09:44)
[2021-10-05] MEDS: INSULIN LISPRO 100 UNIT/ML SUBCUT SCH ×4 (09:45→23:04)
[2021-10-05] MEDS: hydroCHLOROthiazide 25 MG TABLET PO SCH (09:47)
[2021-10-05] MEDS: ASPIRIN EC 81 MG TABLET PO SCH (09:48)
[2021-10-05] MEDS: METOPROLOL TARTRATE 25 MG TABLET PO SCH ×2 (09:48→21:03)
[2021-10-05] MEDS: DOCUSATE SODIUM 100 MG CAPSULE PO SCH ×3 (09:48→21:03)
[2021-10-05] MEDS: AMIODARONE 200 MG TABLET PO SCH ×2 (09:48→21:03)
[2021-10-05] MEDS: CITALOPRAM 40 MG TABLET PO SCH (09:50)
[2021-10-05] MEDS: LEVOFLOXACIN 500 MG TABLET PO SCH (21:03)
[2021-10-05] MEDS: ATORVASTATIN 40 MG TABLET PO SCH (21:03)
[2021-10-05] MEDS: BENZONATATE 100 MG CAPSULE PO PRN (21:04)
[2021-10-05] MEDS: LORazepam 1 MG TABLET PO PRN (21:07)
[2021-10-06] MEDS: CLINDAMYCIN INJ 600 MG/50 ML PREMIX IV SCH ×4 (03:41→21:36)
[2021-10-06] MEDS: SODIUM CHLORIDE 0.9% 1,000 ML IV SCH ×4 (05:18→23:12)
[2021-10-06] MEDS: PANTOPRAZOLE 40 MG TABLET PO SCH (05:35)
[2021-10-06 06:03] LABS: Calcium 9.2 MG/DL (8.5-10.1); Potassium 3.9 MMOL/L (3.5-5.1)
[2021-10-06] MEDS: INSULIN LISPRO 100 UNIT/ML SUBCUT SCH ×4 (07:36→22:43)
[2021-10-06] MEDS: DOCUSATE SODIUM 100 MG CAPSULE PO SCH ×3 (09:28→21:35)
[2021-10-06] MEDS: POLYETHYLENE GLYCOL POWDER 17 GM PACK PO SCH (09:28)
[2021-10-06] MEDS: CITALOPRAM 40 MG TABLET PO SCH (09:29)
[2021-10-06] MEDS: ASPIRIN EC 81 MG TABLET PO SCH (09:29)
[2021-10-06] MEDS: METOPROLOL TARTRATE 25 MG TABLET PO SCH ×2 (09:29→21:35)
[2021-10-06] MEDS: AMIODARONE 200 MG TABLET PO SCH ×2 (09:29→21:35)
[2021-10-06] MEDS: hydroCHLOROthiazide 25 MG TABLET PO SCH (09:29)
[2021-10-06] MEDS: BENZONATATE 100 MG CAPSULE PO PRN (09:29)
[2021-10-06] MEDS: HYDROcodone/CHLORPHENIRAMINE ER 5 ML UDCUP PO SCH ×2 (11:43→21:34)
[2021-10-06] MEDS: MONTELUKAST 10 MG TABLET PO SCH ×2 (11:43→21:35)
[2021-10-06] MEDS ORDERED: HYDROcodone/CHLORPHENIRAMINE ER 5 ML UDCUP PO ONE (17:30)
[2021-10-06] MEDS ORDERED: HYDROmorphone 2 MG/1 ML VIAL IV PRN (18:06)
[2021-10-06] MEDS: ATORVASTATIN 40 MG TABLET PO SCH (21:35)
[2021-10-06] MEDS: LORazepam 1 MG TABLET PO PRN (21:35)
[2021-10-06] MEDS: LEVOFLOXACIN 500 MG TABLET PO SCH (23:11)
[2021-10-07] MEDS: CLINDAMYCIN INJ 600 MG/50 ML PREMIX IV SCH ×4 (03:18→21:43)
[2021-10-07] MEDS: PANTOPRAZOLE 40 MG TABLET PO SCH ×2 (05:28→05:44)
[2021-10-07 06:12] LABS: Calcium 9.2 MG/DL (8.5-10.1); Osmolality,Calculated 268.1 MOS/KG (273-304); Potassium 3.8 MMOL/L (3.5-5.1)
[2021-10-07] MEDS: SODIUM CHLORIDE 0.9% 1,000 ML IV SCH ×2 (06:22→17:27)
[2021-10-07] MEDS: INSULIN LISPRO 100 UNIT/ML SUBCUT SCH ×4 (09:35→21:41)
[2021-10-07] MEDS: hydroCHLOROthiazide 25 MG TABLET PO SCH (09:35)
[2021-10-07] MEDS: MONTELUKAST 10 MG TABLET PO SCH ×2 (09:36→21:41)
[2021-10-07] MEDS: AMIODARONE 200 MG TABLET PO SCH ×2 (09:36→21:41)
[2021-10-07] MEDS: CITALOPRAM 40 MG TABLET PO SCH (09:36)
[2021-10-07] MEDS: DOCUSATE SODIUM 100 MG CAPSULE PO SCH ×3 (09:36→21:42)
[2021-10-07] MEDS: ASPIRIN EC 81 MG TABLET PO SCH (09:36)
[2021-10-07] MEDS: METOPROLOL TARTRATE 25 MG TABLET PO SCH ×2 (09:36→21:42)
[2021-10-07] MEDS: POLYETHYLENE GLYCOL POWDER 17 GM PACK PO SCH (09:37)
[2021-10-07] MEDS: HYDROcodone/CHLORPHENIRAMINE ER 5 ML UDCUP PO SCH ×2 (09:40→21:41)
[2021-10-07 11:21] LABS: ABG Base Excess 1.4 MMOL/L (-2.5-2.5); ABG HCO3 25.4 MMOL/L (20-26); ABG PCO2 41.8 MM HG (35-48); ABG PH 7.407 (7.35-7.45); ABG PO2 58.5 MM HG (80-95); ABG TCO2 22.7 MMOL/L (23-27)
[2021-10-07] MEDS: ALBUTEROL/IPRATROPIUM 3 ML NEB RESP TX SCH ×2 (11:45→20:08)
[2021-10-07] MEDS: ATORVASTATIN 40 MG TABLET PO SCH (21:41)
[2021-10-07] MEDS: LEVOFLOXACIN 500 MG TABLET PO SCH (21:42)
[2021-10-08] MEDS: ALBUTEROL/IPRATROPIUM 3 ML NEB RESP TX SCH ×4 (01:29→21:22)
[2021-10-08] MEDS: CLINDAMYCIN INJ 600 MG/50 ML PREMIX IV SCH ×4 (03:04→22:20)
[2021-10-08] MEDS: PANTOPRAZOLE 40 MG TABLET PO SCH (06:06)
[2021-10-08 06:17] LABS: Basophils # 0.1 10*3/uL (0.0-0.2); Basophils % 0.6 % (0.0-0.8); Eosinophils # 0.2 10*3/uL (0.0-0.87); Eosinophils % 1.8 % (0.00-10.9); Hematocrit 44.5 VOL% (42.0-52.0); Immature Granulocytes % 0.4 %; Immature Granulocytes Absolute 0.04 #; Lymphocytes # 2.7 10*3/uL (1.4-4.0); Lymphocytes % 27.8 % (21.2-54.2); Mean Corpuscular HGB Conc 31.5 GM/DL (32-36); Mean Corpuscular Volume 85.7 FL (87-102); Mean Platelet Volume 10.2 FL (9.6-12.0); Monocytes % 10.2 % (1.7-12.7); Neutrophils % 59.2 % (38.7-73.9); Platelet Count 263 T/CUMM (130-400); Red Blood Count 5.19 MC/CUMM (3.8-5.5); Red Cell Distribution Width 15.1 % (9.3-17.3); White Blood Count 9.6 T/CUMM (4-12)
[2021-10-08 06:51] LABS: Albumin 3.1 G/DL (3.4-5.0); Bilirubin,Total 0.8 MG/DL (0.20-1.00); Calcium 9.2 MG/DL (8.5-10.1); Potassium 3.7 MMOL/L (3.5-5.1); Total Protein 7.1 G/DL (6.4-8.2)
[2021-10-08] MEDS: SODIUM CHLORIDE 0.9% 1,000 ML IV SCH ×2 (07:48→14:21)
[2021-10-08] MEDS: INSULIN LISPRO 100 UNIT/ML SUBCUT SCH ×4 (07:48→22:27)
[2021-10-08] MEDS: ALBUTEROL 2.5 MG/3 ML NEB RESP TX SCH (07:58)
[2021-10-08] MEDS: POLYETHYLENE GLYCOL POWDER 17 GM PACK PO SCH (09:38)
[2021-10-08] MEDS: CITALOPRAM 40 MG TABLET PO SCH (09:41)
[2021-10-08] MEDS: hydroCHLOROthiazide 25 MG TABLET PO SCH (09:42)
[2021-10-08] MEDS: ASPIRIN EC 81 MG TABLET PO SCH (09:42)
[2021-10-08] MEDS: DOCUSATE SODIUM 100 MG CAPSULE PO SCH ×3 (09:42→22:20)
[2021-10-08] MEDS: MONTELUKAST 10 MG TABLET PO SCH ×2 (09:42→22:19)
[2021-10-08] MEDS: METOPROLOL TARTRATE 25 MG TABLET PO SCH ×2 (09:42→22:20)
[2021-10-08] MEDS: AMIODARONE 200 MG TABLET PO SCH ×2 (09:43→22:19)
[2021-10-08] MEDS: HYDROcodone/CHLORPHENIRAMINE ER 5 ML UDCUP PO SCH ×2 (09:43→22:19)
[2021-10-08] MEDS: CHLORHEXIDINE 4% SOLN 118 ML BOTTLE TOP SCH ×3 (10:11→22:28)
[2021-10-08] MEDS: CHLORHEXIDINE 0.12% ORAL RINSE 60 ML BOTTLE SWISH/SPIT SCH ×2 (11:48→22:27)
[2021-10-08] MEDS: LEVOFLOXACIN 500 MG TABLET PO SCH (22:19)
[2021-10-08] MEDS: ATORVASTATIN 40 MG TABLET PO SCH (22:19)
[2021-10-08] MEDS: BENZONATATE 100 MG CAPSULE PO PRN (22:19)
[2021-10-09] MEDS: ALBUTEROL/IPRATROPIUM 3 ML NEB RESP TX SCH ×4 (01:09→19:40)
[2021-10-09] MEDS: CLINDAMYCIN INJ 600 MG/50 ML PREMIX IV SCH ×2 (04:11→20:57)
[2021-10-09] MEDS ORDERED: VANCOMYCIN INJ 1,000 MG in SODIUM CHLORIDE 0.9% 250 ML IV ONE (05:00)
[2021-10-09] MEDS ORDERED: SODIUM CHLORIDE 0.9% 1,000 ML IV SCH (05:00)
[2021-10-09] MEDS ORDERED: DIAZEPAM 5 MG TABLET PO ONE (05:30)
[2021-10-09 06:00] LABS: Albumin 3.2 G/DL (3.4-5.0); Bilirubin,Total 0.9 MG/DL (0.20-1.00); Osmolality,Calculated 274.7 MOS/KG (273-304); Potassium 3.7 MMOL/L (3.5-5.1); Total Protein 7.1 G/DL (6.4-8.2)
[2021-10-09] MEDS ORDERED: ONDANSETRON 4 MG/2 ML VIAL ONE (06:09)
[2021-10-09] MEDS ORDERED: DEXAMETHASONE 4 MG/1 ML VIAL ONE ×2 (06:09→08:08)
[2021-10-09] MEDS ORDERED: ETOMIDATE 40 MG/20 ML VIAL IV ONE (06:09)
[2021-10-09] MEDS ORDERED: SEVOFLURANE 1 UNIT/15 MINUTE INH ONE ×10 (06:09→09:53)
[2021-10-09] MEDS ORDERED: LIDOCAINE 2% 5 ML VIAL ONE ×2 (06:09→07:54)
[2021-10-09] MEDS ORDERED: MIDAZOLAM 2 MG/2 ML VIAL ONE (06:10)
[2021-10-09] MEDS ORDERED: SUFentanil 50 MCG/ML AMP ONE (06:10)
[2021-10-09] MEDS ORDERED: HEPARIN/NACL 0.9% 2 UNITS/ML 1,000 UNIT/500 ML BAG IV ONE (06:17)
[2021-10-09] MEDS ORDERED: PHENYLEPHRINE DRIP 20 MG/250 ML PREMIX IV ONE (06:17)
[2021-10-09] MEDS ORDERED: ACETAMINOPHEN INJ 1,000 MG/100 ML VIAL IV ONE (06:31)
[2021-10-09] MEDS ORDERED: ROCURONIUM 50 MG/5 ML VIAL IV ONE (06:31)
[2021-10-09] MEDS: PANTOPRAZOLE 40 MG TABLET PO SCH (06:48)
[2021-10-09] MEDS ORDERED: VANCOMYCIN 1,000 MG VIAL ONE (07:18)
[2021-10-09] MEDS: ALBUTEROL 2.5 MG/3 ML NEB RESP TX SCH (07:23)
[2021-10-09] MEDS ORDERED: ePHEDrine 50 MG/ML VIAL ONE (07:38)
[2021-10-09 07:46] LABS: ABG Base Excess 0.9 MMOL/L (-2.5-2.5); ABG HCO3 25.2 MMOL/L (20-26); ABG Oxygen Saturation 99.9 % (95-100); ABG PCO2 39.1 MM HG (35-48); ABG PH 7.418 (7.35-7.45); ABG TCO2 21.7 MMOL/L (23-27); Glucose Heart Surgery 112 MG/DL (74-106); Hematocrit Heart Surgery 42.6 PERCENT (42-52); Hemoglobin Heart Surgery 13.9 G/DL (14.0-18.0); Ionized Calcium Arterial 1.19 MMOL/L (1.21-1.46); PCO2 Patient Temp Arterial 39.1 MMHG; PH Patient Temp Arterial 7.418; Patient Temperature 37 CELCIUS; Potassium Heart/CVR 4.2 MMOL/L (3.5-5.1); Sodium Heart/CVR 137 MMOL/L (135-145)
[2021-10-09] MEDS ORDERED: MINERAL OIL/PETROLATUM OPH OINT 3.5 GM TUBE ONE (08:08)
[2021-10-09] MEDS ORDERED: LACTATED RINGERS 1,000 ML IV ONE (08:15)
[2021-10-09 08:25] LABS: Bacteria,Urine Occasional /HPF (Few); Bilirubin,Urine Negative (Negative); Blood, Urine Small mg/dL (Negative); Glucose,Urine (UA) Negative (Negative); Ketones,Urine Negative (Negative); Mucus,Urine Occasional /LPF (Occasional); Nitrite,Urine Negative (Negative); Protein,Urine Negative; RBC,Urine 5 /HPF (0-4); Urine Appearance CLEAR (Clear); Urine Color Straw (Yellow); Urine Specific Gravity 1.006 (1.001-1.035); Urine Urobilinogen < 2.0 EU/DL (<2.0)
[2021-10-09] MEDS ORDERED: PHENYLEPHRINE 1 MG/10 ML SYRINGE IV ONE ×2 (08:36→08:37)
[2021-10-09] MEDS ORDERED: KETOROLAC 30 MG/1 ML VIAL ONE (08:41)
[2021-10-09] MEDS ORDERED: GLYCOPYRROLATE 0.4 MG/2 ML VIAL ONE (09:13)
[2021-10-09] MEDS ORDERED: NEOSTIGMINE 10 MG/10 ML VIAL ONE (09:14)
[2021-10-09] MEDS ORDERED: MIDAZOLAM 2 MG/2 ML VIAL IV PRN (09:56)
[2021-10-09] MEDS ORDERED: MORPHINE 10 MG/1 ML VIAL IV PRN (09:56)
[2021-10-09] MEDS ORDERED: ALBUMIN 5% 12.5 GM/250 ML VIAL IV PRN (09:56)
[2021-10-09] MEDS ORDERED: MAGNESIUM SULF RIDER 4 GM/100 ML PREMIX IV PRN (09:56)
[2021-10-09] MEDS ORDERED: LACTATED RINGERS 250 ML IV PRN (09:56)
[2021-10-09] MEDS ORDERED: ONDANSETRON 4 MG/2 ML VIAL IV PRN (09:56)
[2021-10-09] MEDS ORDERED: CALCIUM CHLORIDE 1,000 MG/10 ML SYRINGE IV PRN (09:56)
[2021-10-09] MEDS ORDERED: PHENYLEPHRINE DRIP 40 MG/250 ML PREMIX IV PRN (09:56)
[2021-10-09] MEDS ORDERED: INSULIN REGULAR 100 UNIT/ML IV PRN (09:56)
[2021-10-09] MEDS ORDERED: MAGNESIUM SULF RIDER 2 GM/50 ML PREMIX IV PRN (09:56)
[2021-10-09] MEDS ORDERED: POTASSIUM CHLORIDE RIDER 20 MEQ/100 ML PREMIX IV PRN (09:56)
[2021-10-09] MEDS ORDERED: MIDAZOLAM 10 MG/2 ML VIAL IV PRN (09:56)
[2021-10-09] MEDS ORDERED: CHLORHEXIDINE 4% SOLN 118 ML BOTTLE TOP PRN (09:56)
[2021-10-09] MEDS ORDERED: INSULIN REGULAR 100 UNIT/ML IV ONE (09:56)
[2021-10-09] MEDS ORDERED: POTASSIUM CHLORIDE RIDER 10 MEQ/100 ML PREMIX IV PRN (09:56)
[2021-10-09] MEDS ORDERED: ACETAMINOPHEN 650 MG SUPP RECTAL PRN (09:56)
[2021-10-09] MEDS ORDERED: DEXTROSE 50% 25 GM/50 ML SYRINGE IV PRN ×2 (09:56)
[2021-10-09] MEDS ORDERED: VECURONIUM 10 MG VIAL IV PRN ×2 (09:56)
[2021-10-09] MEDS ORDERED: NITROPRUSSIDE 100 MG in DEXTROSE 5% 250 ML IV PRN (09:56)
[2021-10-09] MEDS ORDERED: SODIUM CHLORIDE 0.45% 1,000 ML IV SCH ×2 (10:00)
[2021-10-09] MEDS ORDERED: INSULIN REGULAR DRIP 100 ML IV SCH (10:00)
[2021-10-09 10:24] LABS: Basophils # 0.1 10*3/uL (0.0-0.2); Basophils % 0.7 % (0.0-0.8); Eosinophils # 0.1 10*3/uL (0.0-0.87); Eosinophils % 1.5 % (0.00-10.9); Hematocrit 44.1 VOL% (42.0-52.0); Hemoglobin 13.7 GM/DL (14.0-18.0); Immature Granulocytes % 0.7 %; Immature Granulocytes Absolute 0.05 #; Lymphocytes # 1.1 10*3/uL (1.4-4.0); Lymphocytes % 14.3 % (21.2-54.2); Mean Corpuscular HGB Conc 31.1 GM/DL (32-36); Mean Corpuscular Volume 85.6 FL (87-102); Monocytes % 3.6 % (1.7-12.7); Neutrophils % 79.2 % (38.7-73.9); Platelet Count 270 T/CUMM (130-400); Red Blood Count 5.15 MC/CUMM (3.8-5.5); Red Cell Distribution Width 15.2 % (9.3-17.3); White Blood Count 7.5 T/CUMM (4-12)
[2021-10-09 10:35] LABS: INR 1.1; PT Patient Result 11.8 SECS (10.5-12.0); Partial Thromboplastin Time 26.9 SECS (23.8-32.1)
[2021-10-09 10:37] LABS: ABG Base Excess -0.6 MMOL/L (-2.5-2.5); ABG HCO3 23.7 MMOL/L (20-26); ABG Oxygen Saturation 88.7 % (95-100); ABG PCO2 52.8 MM HG (35-48); ABG PH 7.313 (7.35-7.45); ABG PO2 66.5 MM HG (80-95); ABG TCO2 23.4 MMOL/L (23-27); Glucose Heart Surgery 129 MG/DL (74-106); Hematocrit Heart Surgery 42.6 PERCENT (42-52); Hemoglobin Heart Surgery 13.9 G/DL (14.0-18.0); Potassium Heart/CVR 4.2 MMOL/L (3.5-5.1)
[2021-10-09 10:54] LABS: Bilirubin,Total 0.5 MG/DL (0.20-1.00); Calcium 8.6 MG/DL (8.5-10.1); Osmolality,Calculated 274.8 MOS/KG (273-304); Potassium 4.4 MMOL/L (3.5-5.1); Total Protein 6.8 G/DL (6.4-8.2)
[2021-10-09] MEDS: ASPIRIN EC 81 MG TABLET PO SCH (12:34)
[2021-10-09] MEDS: POLYETHYLENE GLYCOL POWDER 17 GM PACK PO SCH (12:34)
[2021-10-09] MEDS: INSULIN LISPRO 100 UNIT/ML SUBCUT SCH ×3 (12:34→21:46)
[2021-10-09] MEDS: DOCUSATE SODIUM 100 MG CAPSULE PO SCH ×3 (12:34→21:45)
[2021-10-09] MEDS: CITALOPRAM 40 MG TABLET PO SCH (12:34)
[2021-10-09] MEDS: HYDROcodone/CHLORPHENIRAMINE ER 5 ML UDCUP PO SCH ×2 (12:34→21:46)
[2021-10-09] MEDS: MONTELUKAST 10 MG TABLET PO SCH ×2 (12:37→21:44)
[2021-10-09] MEDS: hydroCHLOROthiazide 25 MG TABLET PO SCH (13:00)
[2021-10-09] MEDS: AMIODARONE 200 MG TABLET PO SCH ×2 (13:00→21:45)
[2021-10-09] MEDS: METOPROLOL TARTRATE 25 MG TABLET PO SCH ×2 (13:00→21:44)
[2021-10-09] MEDS: KETOROLAC 30 MG/1 ML VIAL IV SCH ×2 (15:30→21:47)
[2021-10-09] MEDS: CHLORHEXIDINE 0.12% ORAL RINSE 60 ML BOTTLE SWISH/SPIT SCH (20:58)
[2021-10-09] MEDS: SODIUM CHLORIDE 0.9% 1,000 ML IV SCH (20:59)
[2021-10-09] MEDS ORDERED: CHLORHEXIDINE 0.12% ORAL RINSE 60 ML BOTTLE SWISH/SPIT SCH (21:00)
[2021-10-09] MEDS: ATORVASTATIN 40 MG TABLET PO SCH (21:44)
[2021-10-09] MEDS: LEVOFLOXACIN 500 MG TABLET PO SCH (21:45)
[2021-10-09] MEDS ORDERED: VANCOMYCIN INJ 1,000 MG in SODIUM CHLORIDE 0.9% 250 ML IV SCH (22:00)
[2021-10-10] MEDS: ALBUTEROL/IPRATROPIUM 3 ML NEB RESP TX SCH ×4 (02:01→19:50)
[2021-10-10] MEDS: KETOROLAC 30 MG/1 ML VIAL IV SCH ×2 (02:52→09:54)
[2021-10-10 04:23] LABS: ABG Base Excess 2.5 MMOL/L (-2.5-2.5); ABG HCO3 26.5 MMOL/L (20-26); ABG Oxygen Saturation 93.8 % (95-100); ABG PCO2 41.6 MM HG (35-48); ABG PH 7.423 (7.35-7.45); ABG TCO2 23.6 MMOL/L (23-27); Glucose Heart Surgery 117 MG/DL (74-106); Hematocrit Heart Surgery 40.9 PERCENT (42-52); Hemoglobin Heart Surgery 13.3 G/DL (14.0-18.0); Potassium Heart/CVR 3.8 MMOL/L (3.5-5.1)
[2021-10-10 04:28] LABS: Basophils % 0.2 % (0.0-0.8); Eosinophils % 0.2 % (0.00-10.9); Hematocrit 41.8 VOL% (42.0-52.0); Hemoglobin 13.2 GM/DL (14.0-18.0); Immature Granulocytes % 0.3 %; Immature Granulocytes Absolute 0.03 #; Mean Corpuscular HGB Conc 31.6 GM/DL (32-36); Mean Corpuscular Volume 85.1 FL (87-102); Mean Platelet Volume 9.7 FL (9.6-12.0); Monocytes % 8.4 % (1.7-12.7); Neutrophils % 72.9 % (38.7-73.9); Platelet Count 263 T/CUMM (130-400); Red Blood Count 4.91 MC/CUMM (3.8-5.5); Red Cell Distribution Width 15.2 % (9.3-17.3); White Blood Count 10.8 T/CUMM (4-12)
[2021-10-10 04:50] LABS: Albumin 2.8 G/DL (3.4-5.0); Bilirubin,Direct 0.13 MG/DL (0.0-0.20); Bilirubin,Total 0.5 MG/DL (0.20-1.00); Calcium 8.7 MG/DL (8.5-10.1); Osmolality,Calculated 271.1 MOS/KG (273-304); Potassium 3.8 MMOL/L (3.5-5.1); Total Protein 6.5 G/DL (6.4-8.2)
[2021-10-10] MEDS: PANTOPRAZOLE 40 MG TABLET PO SCH (06:42)
[2021-10-10] MEDS: INSULIN LISPRO 100 UNIT/ML SUBCUT SCH (08:10)
[2021-10-10] MEDS ORDERED: ALUMINUM/MAGNES/SIMETH MAX STR 30 ML UDCUP PO PRN (08:11)
[2021-10-10] MEDS ORDERED: ACETAMINOPHEN 325 MG TABLET PO PRN (08:11)
[2021-10-10] MEDS ORDERED: ONDANSETRON 4 MG/2 ML VIAL IV PRN (08:11)
[2021-10-10] MEDS ORDERED: MAGNESIUM HYDROXIDE SUSP 30 ML UDCUP PO PRN (08:11)
[2021-10-10] MEDS ORDERED: DEXTROSE 50% 25 GM/50 ML SYRINGE IV PRN (08:11)
[2021-10-10] MEDS ORDERED: GLUCAGON 1 MG VIAL IM PRN (08:11)
[2021-10-10] MEDS ORDERED: ZALEPLON 5 MG CAPSULE PO PRN (08:11)
[2021-10-10] MEDS ORDERED: MAGNESIUM SULF RIDER 4 GM/100 ML PREMIX IV PRN (08:11)
[2021-10-10] MEDS ORDERED: MAGNESIUM SULF RIDER 2 GM/50 ML PREMIX IV PRN (08:11)
[2021-10-10] MEDS: ALBUTEROL 2.5 MG/3 ML NEB RESP TX SCH (08:56)
[2021-10-10] MEDS: AMIODARONE 200 MG TABLET PO SCH ×2 (09:54→21:13)
[2021-10-10] MEDS: ASPIRIN EC 81 MG TABLET PO SCH (09:54)
[2021-10-10] MEDS: DOCUSATE SODIUM 100 MG CAPSULE PO SCH ×2 (09:54→21:13)
[2021-10-10] MEDS: hydroCHLOROthiazide 25 MG TABLET PO SCH (09:54)
[2021-10-10] MEDS: POLYETHYLENE GLYCOL POWDER 17 GM PACK PO SCH (09:54)
[2021-10-10] MEDS: MONTELUKAST 10 MG TABLET PO SCH ×2 (09:54→21:13)
[2021-10-10] MEDS: CITALOPRAM 40 MG TABLET PO SCH (09:54)
[2021-10-10] MEDS: METOPROLOL TARTRATE 25 MG TABLET PO SCH ×2 (09:55→21:13)
[2021-10-10] MEDS: CHLORHEXIDINE 0.12% ORAL RINSE 60 ML BOTTLE SWISH/SPIT SCH ×2 (09:56→21:14)
[2021-10-10] MEDS: HYDROcodone/CHLORPHENIRAMINE ER 5 ML UDCUP PO SCH ×2 (09:56→21:27)
[2021-10-10] MEDS: ATORVASTATIN 40 MG TABLET PO SCH (21:13)
[2021-10-10] MEDS: LEVOFLOXACIN 500 MG TABLET PO SCH (21:13)
[2021-10-11] MEDS: ALBUTEROL/IPRATROPIUM 3 ML NEB RESP TX SCH ×4 (00:58→20:15)
[2021-10-11 05:22] LABS: Basophils # 0.1 10*3/uL (0.0-0.2); Basophils % 0.6 % (0.0-0.8); Eosinophils # 0.1 10*3/uL (0.0-0.87); Eosinophils % 1.2 % (0.00-10.9); Hematocrit 43.9 VOL% (42.0-52.0); Hemoglobin 13.9 GM/DL (14.0-18.0); Immature Granulocytes % 0.5 %; Immature Granulocytes Absolute 0.05 #; Lymphocytes # 2.7 10*3/uL (1.4-4.0); Lymphocytes % 27.9 % (21.2-54.2); Mean Corpuscular HGB Conc 31.7 GM/DL (32-36); Mean Corpuscular Volume 85.1 FL (87-102); Monocytes % 9.2 % (1.7-12.7); Neutrophils % 60.6 % (38.7-73.9); Platelet Count 252 T/CUMM (130-400); Red Blood Count 5.16 MC/CUMM (3.8-5.5); Red Cell Distribution Width 15.4 % (9.3-17.3); White Blood Count 9.7 T/CUMM (4-12)
[2021-10-11 05:52] LABS: Albumin 2.9 G/DL (3.4-5.0); Bilirubin,Direct 0.12 MG/DL (0.0-0.20); Bilirubin,Direct 0.13 MG/DL (0.0-0.20); Bilirubin,Indirect 1.1 MG/DL (0.0-1.0); Bilirubin,Total 0.8 MG/DL (0.20-1.00); Bilirubin,Total 1.2 MG/DL (0.20-1.00); Calcium 8.9 MG/DL (8.5-10.1); Potassium 3.8 MMOL/L (3.5-5.1); Total Protein 7.1 G/DL (6.4-8.2)
[2021-10-11] MEDS: PANTOPRAZOLE 40 MG TABLET PO SCH (06:23)
[2021-10-11] MEDS: POTASSIUM CHLORIDE 20 MEQ TABLET PO PRN ×2 (06:38→10:42)
[2021-10-11] MEDS: CLORAZEPATE 3.75 MG TABLET PO SCH ×3 (10:42→20:33)
[2021-10-11] MEDS: CITALOPRAM 40 MG TABLET PO SCH (10:42)
[2021-10-11] MEDS: AMIODARONE 200 MG TABLET PO SCH ×2 (10:42→20:33)
[2021-10-11] MEDS: POLYETHYLENE GLYCOL POWDER 17 GM PACK PO SCH (10:42)
[2021-10-11] MEDS: ASPIRIN EC 81 MG TABLET PO SCH (10:42)
[2021-10-11] MEDS: DOCUSATE SODIUM 100 MG CAPSULE PO SCH ×2 (10:43→20:33)
[2021-10-11] MEDS: CHLORHEXIDINE 0.12% ORAL RINSE 60 ML BOTTLE SWISH/SPIT SCH ×2 (10:43→20:35)
[2021-10-11] MEDS: METOPROLOL TARTRATE 25 MG TABLET PO SCH ×2 (10:43→20:33)
[2021-10-11] MEDS: HYDROcodone/CHLORPHENIRAMINE ER 5 ML UDCUP PO SCH ×2 (10:43→20:34)
[2021-10-11] MEDS: MONTELUKAST 10 MG TABLET PO SCH ×2 (10:43→20:32)
[2021-10-11] MEDS: hydroCHLOROthiazide 25 MG TABLET PO SCH (10:49)
[2021-10-11] MEDS: LEVOFLOXACIN 500 MG TABLET PO SCH (20:33)
[2021-10-11] MEDS: ATORVASTATIN 40 MG TABLET PO SCH (20:33)
[2021-10-12] MEDS: ALBUTEROL/IPRATROPIUM 3 ML NEB RESP TX SCH ×4 (00:59→20:05)
[2021-10-12 03:59] LABS: Basophils # 0.1 10*3/uL (0.0-0.2); Basophils % 1.1 % (0.0-0.8); Eosinophils # 0.2 10*3/uL (0.0-0.87); Eosinophils % 2.2 % (0.00-10.9); Hemoglobin 13.9 GM/DL (14.0-18.0); Immature Granulocytes % 0.6 %; Immature Granulocytes Absolute 0.07 #; Lymphocytes # 2.8 10*3/uL (1.4-4.0); Lymphocytes % 25.5 % (21.2-54.2); Mean Corpuscular HGB Conc 30.9 GM/DL (32-36); Mean Corpuscular Volume 86.4 FL (87-102); Mean Platelet Volume 10.4 FL (9.6-12.0); Monocytes % 10.6 % (1.7-12.7); Platelet Count 273 T/CUMM (130-400); Red Blood Count 5.21 MC/CUMM (3.8-5.5); Red Cell Distribution Width 15.5 % (9.3-17.3); White Blood Count 10.8 T/CUMM (4-12)
[2021-10-12 04:19] LABS: Albumin 3.1 G/DL (3.4-5.0); Bilirubin,Direct 0.13 MG/DL (0.0-0.20); Bilirubin,Indirect 0.8 MG/DL (0.0-1.0); Bilirubin,Total 0.7 MG/DL (0.20-1.00); Bilirubin,Total 0.9 MG/DL (0.20-1.00); Calcium 9.3 MG/DL (8.5-10.1); Osmolality,Calculated 269.2 MOS/KG (273-304); Potassium 3.9 MMOL/L (3.5-5.1); Total Protein 7.2 G/DL (6.4-8.2)
[2021-10-12] MEDS: PANTOPRAZOLE 40 MG TABLET PO SCH (05:37)
[2021-10-12] MEDS: BENZONATATE 100 MG CAPSULE PO PRN (05:42)
[2021-10-12] MEDS ORDERED: ONDANSETRON 4 MG TABLET PO PRN (09:01)
[2021-10-12] MEDS ORDERED: ONDANSETRON 4 MG/2 ML VIAL IM PRN (09:02)
[2021-10-12] MEDS: POLYETHYLENE GLYCOL POWDER 17 GM PACK PO SCH (10:43)
[2021-10-12] MEDS: ASPIRIN EC 81 MG TABLET PO SCH (10:44)
[2021-10-12] MEDS: CITALOPRAM 40 MG TABLET PO SCH (10:44)
[2021-10-12] MEDS: hydroCHLOROthiazide 25 MG TABLET PO SCH (10:44)
[2021-10-12] MEDS: DOCUSATE SODIUM 100 MG CAPSULE PO SCH ×2 (10:44→20:18)
[2021-10-12] MEDS: METOPROLOL TARTRATE 25 MG TABLET PO SCH ×2 (10:45→20:18)
[2021-10-12] MEDS: AMIODARONE 200 MG TABLET PO SCH ×2 (10:45→20:18)
[2021-10-12] MEDS: HYDROcodone/CHLORPHENIRAMINE ER 5 ML UDCUP PO SCH ×2 (10:45→20:19)
[2021-10-12] MEDS: CHLORHEXIDINE 0.12% ORAL RINSE 60 ML BOTTLE SWISH/SPIT SCH ×2 (10:45→20:18)
[2021-10-12] MEDS: CLORAZEPATE 3.75 MG TABLET PO SCH ×3 (10:45→20:18)
[2021-10-12] MEDS: MONTELUKAST 10 MG TABLET PO SCH ×2 (10:46→20:18)
[2021-10-12] MEDS: ATORVASTATIN 40 MG TABLET PO SCH (20:18)
[2021-10-12] MEDS: LEVOFLOXACIN 500 MG TABLET PO SCH (20:18)
[2021-10-13] MEDS: ALBUTEROL/IPRATROPIUM 3 ML NEB RESP TX SCH ×4 (00:55→18:53)
[2021-10-13] MEDS: PANTOPRAZOLE 40 MG TABLET PO SCH (05:56)
[2021-10-13] MEDS: hydroCHLOROthiazide 25 MG TABLET PO SCH (09:12)
[2021-10-13] MEDS: CLORAZEPATE 3.75 MG TABLET PO SCH ×3 (09:12→20:19)
[2021-10-13] MEDS: DOCUSATE SODIUM 100 MG CAPSULE PO SCH ×2 (09:12→20:19)
[2021-10-13] MEDS: CITALOPRAM 40 MG TABLET PO SCH (09:12)
[2021-10-13] MEDS: MONTELUKAST 10 MG TABLET PO SCH ×2 (09:12→20:20)
[2021-10-13] MEDS: HYDROcodone/CHLORPHENIRAMINE ER 5 ML UDCUP PO SCH ×2 (09:12→20:20)
[2021-10-13] MEDS: METOPROLOL TARTRATE 25 MG TABLET PO SCH ×2 (09:12→20:19)
[2021-10-13] MEDS: ASPIRIN EC 81 MG TABLET PO SCH (09:12)
[2021-10-13] MEDS: AMIODARONE 200 MG TABLET PO SCH ×2 (09:12→20:20)
[2021-10-13] MEDS: POLYETHYLENE GLYCOL POWDER 17 GM PACK PO SCH (09:13)
[2021-10-13] MEDS: CHLORHEXIDINE 0.12% ORAL RINSE 60 ML BOTTLE SWISH/SPIT SCH ×2 (09:13→20:22)
[2021-10-13] MEDS: LEVOFLOXACIN 500 MG TABLET PO SCH (20:19)
[2021-10-13] MEDS: ATORVASTATIN 40 MG TABLET PO SCH (20:20)
[2021-10-14] MEDS: ALBUTEROL/IPRATROPIUM 3 ML NEB RESP TX SCH ×4 (00:55→19:39)
[2021-10-14] MEDS: PANTOPRAZOLE 40 MG TABLET PO SCH (05:31)
[2021-10-14 06:06] LABS: Basophils # 0.1 10*3/uL (0.0-0.2); Basophils % 1.3 % (0.0-0.8); Eosinophils # 0.3 10*3/uL (0.0-0.87); Eosinophils % 3.1 % (0.00-10.9); Hematocrit 46.6 VOL% (42.0-52.0); Hemoglobin 14.4 GM/DL (14.0-18.0); Immature Granulocytes % 0.9 %; Immature Granulocytes Absolute 0.08 #; Lymphocytes # 3.1 10*3/uL (1.4-4.0); Lymphocytes % 33.9 % (21.2-54.2); Mean Corpuscular HGB Conc 30.9 GM/DL (32-36); Mean Corpuscular Volume 86.1 FL (87-102); Mean Platelet Volume 10.3 FL (9.6-12.0); Monocytes % 9.2 % (1.7-12.7); Neutrophils % 51.6 % (38.7-73.9); Platelet Count 279 T/CUMM (130-400); Red Blood Count 5.41 MC/CUMM (3.8-5.5); Red Cell Distribution Width 15.3 % (9.3-17.3); White Blood Count 9.2 T/CUMM (4-12)
[2021-10-14 06:28] LABS: Alanine Aminotransferase 33 U/L (16-61); Albumin 3.1 G/DL (3.4-5.0); Alkaline Phosphatase 123 U/L (45-117); Aspartate Amino Transferase 21 U/L (0-37); Bilirubin,Direct < 0.100 MG/DL (0.0-0.20); Bilirubin,Indirect 0.8 MG/DL (0.0-1.0); Blood Urea Nitrogen 14 MG/DL (7-18); Calcium 9.4 MG/DL (8.5-10.1); Carbon Dioxide 25 MMOL/L (21-32); Estimated Glom Filtration Rate 133 ML/MIN; Glucose 94 MG/DL (74-106); Osmolality,Calculated 270.1 MOS/KG (273-304); Potassium 3.9 MMOL/L (3.5-5.1); Sodium 135 MMOL/L (136-145); Total Protein 7.2 G/DL (6.4-8.2)
[2021-10-14] MEDS: POLYETHYLENE GLYCOL POWDER 17 GM PACK PO SCH (09:17)
[2021-10-14] MEDS: HYDROcodone/CHLORPHENIRAMINE ER 5 ML UDCUP PO SCH ×2 (09:19→22:18)
[2021-10-14] MEDS: METOPROLOL TARTRATE 25 MG TABLET PO SCH ×2 (09:19→22:19)
[2021-10-14] MEDS: AMIODARONE 200 MG TABLET PO SCH ×2 (09:20→22:18)
[2021-10-14] MEDS: MONTELUKAST 10 MG TABLET PO SCH ×2 (09:21→22:17)
[2021-10-14] MEDS: DOCUSATE SODIUM 100 MG CAPSULE PO SCH ×2 (09:21→22:17)
[2021-10-14] MEDS: CLORAZEPATE 3.75 MG TABLET PO SCH ×3 (09:21→22:18)
[2021-10-14] MEDS: ASPIRIN EC 81 MG TABLET PO SCH (09:22)
[2021-10-14] MEDS: hydroCHLOROthiazide 25 MG TABLET PO SCH (09:22)
[2021-10-14] MEDS: CITALOPRAM 40 MG TABLET PO SCH (09:24)
[2021-10-14] MEDS: CHLORHEXIDINE 0.12% ORAL RINSE 60 ML BOTTLE SWISH/SPIT SCH ×2 (09:25→22:18)
[2021-10-14] MEDS: LEVOFLOXACIN 500 MG TABLET PO SCH (22:17)
[2021-10-14] MEDS: ATORVASTATIN 40 MG TABLET PO SCH (22:18)
[2021-10-15] MEDS: ALBUTEROL/IPRATROPIUM 3 ML NEB RESP TX SCH ×4 (01:20→19:24)
[2021-10-15] MEDS: PANTOPRAZOLE 40 MG TABLET PO SCH (06:19)
[2021-10-15 06:23] LABS: Basophils # 0.1 10*3/uL (0.0-0.2); Basophils % 0.9 % (0.0-0.8); Eosinophils # 0.2 10*3/uL (0.0-0.87); Eosinophils % 1.9 % (0.00-10.9); Hematocrit 45.2 VOL% (42.0-52.0); Hemoglobin 14.4 GM/DL (14.0-18.0); Immature Granulocytes % 0.9 %; Immature Granulocytes Absolute 0.09 #; Lymphocytes # 2.7 10*3/uL (1.4-4.0); Lymphocytes % 26.4 % (21.2-54.2); Mean Corpuscular HGB Conc 31.9 GM/DL (32-36); Mean Corpuscular Volume 85.1 FL (87-102); Mean Platelet Volume 10.1 FL (9.6-12.0); Monocytes % 9.4 % (1.7-12.7); Neutrophils % 60.5 % (38.7-73.9); Platelet Count 266 T/CUMM (130-400); Red Blood Count 5.31 MC/CUMM (3.8-5.5); Red Cell Distribution Width 15.1 % (9.3-17.3); White Blood Count 10.2 T/CUMM (4-12)
[2021-10-15 06:53] LABS: Alanine Aminotransferase 31 U/L (16-61); Albumin 3.1 G/DL (3.4-5.0); Alkaline Phosphatase 133 U/L (45-117); Aspartate Amino Transferase 16 U/L (0-37); Bilirubin,Direct < 0.100 MG/DL (0.0-0.20); Bilirubin,Indirect 0.8 MG/DL (0.0-1.0); Blood Urea Nitrogen 14 MG/DL (7-18); Calcium 9.2 MG/DL (8.5-10.1); Carbon Dioxide 28 MMOL/L (21-32); Estimated Glom Filtration Rate 133 ML/MIN; Glucose 103 MG/DL (74-106); Osmolality,Calculated 270.1 MOS/KG (273-304); Potassium 3.8 MMOL/L (3.5-5.1); Sodium 135 MMOL/L (136-145); Total Protein 7.1 G/DL (6.4-8.2)
[2021-10-15] MEDS: ASPIRIN EC 81 MG TABLET PO SCH (09:50)
[2021-10-15] MEDS: METOPROLOL TARTRATE 25 MG TABLET PO SCH ×2 (09:50→21:35)
[2021-10-15] MEDS: CITALOPRAM 40 MG TABLET PO SCH (09:50)
[2021-10-15] MEDS: MONTELUKAST 10 MG TABLET PO SCH ×2 (09:50→21:35)
[2021-10-15] MEDS: hydroCHLOROthiazide 25 MG TABLET PO SCH (09:50)
[2021-10-15] MEDS: CLORAZEPATE 3.75 MG TABLET PO SCH ×3 (09:50→21:35)
[2021-10-15] MEDS: DOCUSATE SODIUM 100 MG CAPSULE PO SCH ×2 (09:51→21:35)
[2021-10-15] MEDS: HYDROcodone/CHLORPHENIRAMINE ER 5 ML UDCUP PO SCH ×2 (09:51→21:35)
[2021-10-15] MEDS: AMIODARONE 200 MG TABLET PO SCH ×2 (09:51→21:35)
[2021-10-15] MEDS: CHLORHEXIDINE 0.12% ORAL RINSE 60 ML BOTTLE SWISH/SPIT SCH ×2 (09:52→21:35)
[2021-10-15] MEDS: POLYETHYLENE GLYCOL POWDER 17 GM PACK PO SCH ×2 (09:54→09:55)
[2021-10-15] MEDS: LEVOFLOXACIN 500 MG TABLET PO SCH (21:35)
[2021-10-15] MEDS: ATORVASTATIN 40 MG TABLET PO SCH (21:35)
[2021-10-16] MEDS: ALBUTEROL/IPRATROPIUM 3 ML NEB RESP TX SCH ×4 (01:32→20:30)
[2021-10-16] MEDS: PANTOPRAZOLE 40 MG TABLET PO SCH (05:38)
[2021-10-16] MEDS: ASPIRIN EC 81 MG TABLET PO SCH (10:13)
[2021-10-16] MEDS: MONTELUKAST 10 MG TABLET PO SCH ×2 (10:13→20:44)
[2021-10-16] MEDS: hydroCHLOROthiazide 25 MG TABLET PO SCH (10:13)
[2021-10-16] MEDS: CITALOPRAM 40 MG TABLET PO SCH (10:14)
[2021-10-16] MEDS: DOCUSATE SODIUM 100 MG CAPSULE PO SCH ×2 (10:14→20:44)
[2021-10-16] MEDS: CLORAZEPATE 3.75 MG TABLET PO SCH ×3 (10:14→20:43)
[2021-10-16] MEDS: POLYETHYLENE GLYCOL POWDER 17 GM PACK PO SCH (10:14)
[2021-10-16] MEDS: HYDROcodone/CHLORPHENIRAMINE ER 5 ML UDCUP PO SCH ×2 (10:14→20:43)
[2021-10-16] MEDS: METOPROLOL TARTRATE 25 MG TABLET PO SCH ×2 (10:14→20:44)
[2021-10-16] MEDS: AMIODARONE 200 MG TABLET PO SCH ×2 (10:14→20:44)
[2021-10-16] MEDS: CHLORHEXIDINE 0.12% ORAL RINSE 60 ML BOTTLE SWISH/SPIT SCH ×2 (10:15→20:44)
[2021-10-16] MEDS: ATORVASTATIN 40 MG TABLET PO SCH (20:43)
[2021-10-16] MEDS: LEVOFLOXACIN 500 MG TABLET PO SCH (20:43)
[2021-10-17] MEDS: ALBUTEROL/IPRATROPIUM 3 ML NEB RESP TX SCH ×4 (01:00→23:46)
[2021-10-17] MEDS: PANTOPRAZOLE 40 MG TABLET PO SCH (05:32)
[2021-10-17 05:36] LABS: Calcium 9.4 MG/DL (8.5-10.1); Osmolality,Calculated 262.7 MOS/KG (273-304); Potassium 3.8 MMOL/L (3.5-5.1)
[2021-10-17] MEDS: ASPIRIN EC 81 MG TABLET PO SCH (09:26)
[2021-10-17] MEDS: POLYETHYLENE GLYCOL POWDER 17 GM PACK PO SCH (09:27)
[2021-10-17] MEDS: AMIODARONE 200 MG TABLET PO SCH ×2 (09:27→20:57)
[2021-10-17] MEDS: hydroCHLOROthiazide 25 MG TABLET PO SCH (09:27)
[2021-10-17] MEDS: CITALOPRAM 40 MG TABLET PO SCH (09:27)
[2021-10-17] MEDS: METOPROLOL TARTRATE 25 MG TABLET PO SCH ×2 (09:27→20:57)
[2021-10-17] MEDS: DOCUSATE SODIUM 100 MG CAPSULE PO SCH ×2 (09:27→20:56)
[2021-10-17] MEDS: MONTELUKAST 10 MG TABLET PO SCH ×2 (09:28→20:57)
[2021-10-17] MEDS: CHLORHEXIDINE 0.12% ORAL RINSE 60 ML BOTTLE SWISH/SPIT SCH ×2 (09:28→20:57)
[2021-10-17] MEDS: HYDROcodone/CHLORPHENIRAMINE ER 5 ML UDCUP PO SCH ×2 (09:28→20:56)
[2021-10-17] MEDS: CLORAZEPATE 3.75 MG TABLET PO SCH ×2 (09:28→20:56)
[2021-10-17] MEDS: ATORVASTATIN 40 MG TABLET PO SCH (20:56)
[2021-10-17] MEDS: LEVOFLOXACIN 500 MG TABLET PO SCH (20:57)
[2021-10-18] MEDS: ALBUTEROL/IPRATROPIUM 3 ML NEB RESP TX SCH ×4 (00:03→19:16)
[2021-10-18 05:35] LABS: Basophils # 0.1 10*3/uL (0.0-0.2); Basophils % 0.8 % (0.0-0.8); Eosinophils # 0.2 10*3/uL (0.0-0.87); Eosinophils % 2.3 % (0.00-10.9); Hematocrit 40.1 VOL% (42.0-52.0); Hemoglobin 12.6 GM/DL (14.0-18.0); Immature Granulocytes % 0.7 %; Immature Granulocytes Absolute 0.07 #; Lymphocytes # 1.9 10*3/uL (1.4-4.0); Lymphocytes % 18.6 % (21.2-54.2); Mean Corpuscular HGB Conc 31.4 GM/DL (32-36); Mean Corpuscular Volume 84.8 FL (87-102); Mean Platelet Volume 9.6 FL (9.6-12.0); Monocytes % 9.4 % (1.7-12.7); Neutrophils % 68.2 % (38.7-73.9); Platelet Count 257 T/CUMM (130-400); Red Blood Count 4.73 MC/CUMM (3.8-5.5); Red Cell Distribution Width 15.1 % (9.3-17.3); White Blood Count 10.2 T/CUMM (4-12)
[2021-10-18] MEDS: PANTOPRAZOLE 40 MG TABLET PO SCH (05:38)
[2021-10-18 05:55] LABS: Calcium 8.5 MG/DL (8.5-10.1); Osmolality,Calculated 268.2 MOS/KG (273-304); Potassium 3.5 MMOL/L (3.5-5.1)
[2021-10-18] MEDS: DOCUSATE SODIUM 100 MG CAPSULE PO SCH ×2 (09:17→20:01)
[2021-10-18] MEDS: hydroCHLOROthiazide 25 MG TABLET PO SCH (09:17)
[2021-10-18] MEDS: AMIODARONE 200 MG TABLET PO SCH ×2 (09:17→20:00)
[2021-10-18] MEDS: CITALOPRAM 40 MG TABLET PO SCH (09:17)
[2021-10-18] MEDS: ASPIRIN EC 81 MG TABLET PO SCH (09:17)
[2021-10-18] MEDS: METOPROLOL TARTRATE 25 MG TABLET PO SCH ×2 (09:18→20:00)
[2021-10-18] MEDS: POLYETHYLENE GLYCOL POWDER 17 GM PACK PO SCH (09:18)
[2021-10-18] MEDS: CHLORHEXIDINE 0.12% ORAL RINSE 60 ML BOTTLE SWISH/SPIT SCH ×2 (09:20→20:01)
[2021-10-18] MEDS: HYDROcodone/CHLORPHENIRAMINE ER 5 ML UDCUP PO SCH ×2 (09:21→20:01)
[2021-10-18] MEDS: MONTELUKAST 10 MG TABLET PO SCH ×2 (09:21→20:00)
[2021-10-18] MEDS: CLORAZEPATE 3.75 MG TABLET PO SCH ×2 (09:21→20:00)
[2021-10-18] MEDS: ATORVASTATIN 40 MG TABLET PO SCH (20:00)
[2021-10-18] MEDS: LEVOFLOXACIN 500 MG TABLET PO SCH (20:01)
[2021-10-19] MEDS: ALBUTEROL/IPRATROPIUM 3 ML NEB RESP TX SCH ×4 (00:02→19:58)
[2021-10-19] MEDS: PANTOPRAZOLE 40 MG TABLET PO SCH (05:34)
[2021-10-19] MEDS: hydroCHLOROthiazide 25 MG TABLET PO SCH (09:48)
[2021-10-19] MEDS: DOCUSATE SODIUM 100 MG CAPSULE PO SCH ×2 (09:48→22:33)
[2021-10-19] MEDS: CLORAZEPATE 3.75 MG TABLET PO PRN ×2 (09:48→22:33)
[2021-10-19] MEDS: AMIODARONE 200 MG TABLET PO SCH ×2 (09:48→22:32)
[2021-10-19] MEDS: METOPROLOL TARTRATE 25 MG TABLET PO SCH ×2 (09:48→22:33)
[2021-10-19] MEDS: CITALOPRAM 40 MG TABLET PO SCH (09:48)
[2021-10-19] MEDS: ASPIRIN EC 81 MG TABLET PO SCH (09:48)
[2021-10-19] MEDS: MONTELUKAST 10 MG TABLET PO SCH ×2 (09:48→22:33)
[2021-10-19] MEDS: HYDROcodone/CHLORPHENIRAMINE ER 5 ML UDCUP PO SCH ×2 (09:49→22:32)
[2021-10-19] MEDS: POLYETHYLENE GLYCOL POWDER 17 GM PACK PO SCH (09:49)
[2021-10-19] MEDS: CHLORHEXIDINE 0.12% ORAL RINSE 60 ML BOTTLE SWISH/SPIT SCH ×2 (09:51→22:33)
[2021-10-19] MEDS ORDERED: DEXTROSE 10% 250 ML BAG IV PRN (11:00)
[2021-10-19] MEDS: ENOXAPARIN 40 MG/0.4 ML SYRINGE SUBCUT SCH ×2 (11:31→23:27)
[2021-10-19] MEDS: CLORAZEPATE 3.75 MG TABLET PO SCH (13:18)
[2021-10-19] MEDS: LEVOFLOXACIN 500 MG TABLET PO SCH (22:33)
[2021-10-19] MEDS: ATORVASTATIN 40 MG TABLET PO SCH (22:33)
[2021-10-20] MEDS: ALBUTEROL/IPRATROPIUM 3 ML NEB RESP TX SCH ×4 (02:20→19:12)
[2021-10-20] MEDS: PANTOPRAZOLE 40 MG TABLET PO SCH (05:40)
[2021-10-20 07:13] LABS: Calcium 9.4 MG/DL (8.5-10.1)
[2021-10-20] MEDS: DOCUSATE SODIUM 100 MG CAPSULE PO SCH ×2 (09:58→21:07)
[2021-10-20] MEDS: CITALOPRAM 40 MG TABLET PO SCH (09:58)
[2021-10-20] MEDS: ASPIRIN EC 81 MG TABLET PO SCH (09:58)
[2021-10-20] MEDS: hydroCHLOROthiazide 25 MG TABLET PO SCH (09:59)
[2021-10-20] MEDS: MONTELUKAST 10 MG TABLET PO SCH ×2 (09:59→21:07)
[2021-10-20] MEDS: METOPROLOL TARTRATE 25 MG TABLET PO SCH ×2 (09:59→21:07)
[2021-10-20] MEDS: CHLORHEXIDINE 0.12% ORAL RINSE 60 ML BOTTLE SWISH/SPIT SCH ×2 (10:00→21:08)
[2021-10-20] MEDS: HYDROcodone/CHLORPHENIRAMINE ER 5 ML UDCUP PO SCH ×2 (10:00→21:07)
[2021-10-20] MEDS: POLYETHYLENE GLYCOL POWDER 17 GM PACK PO SCH (10:00)
[2021-10-20] MEDS: AMIODARONE 200 MG TABLET PO SCH ×2 (10:01→21:07)
[2021-10-20] MEDS: ENOXAPARIN 40 MG/0.4 ML SYRINGE SUBCUT SCH (10:01)
[2021-10-20] MEDS: BENZONATATE 100 MG CAPSULE PO PRN (18:23)
[2021-10-20] MEDS: CLORAZEPATE 3.75 MG TABLET PO PRN (21:07)
[2021-10-20] MEDS: LEVOFLOXACIN 500 MG TABLET PO SCH (21:07)
[2021-10-20] MEDS: ATORVASTATIN 40 MG TABLET PO SCH (21:07)
[2021-10-21] MEDS: ALBUTEROL/IPRATROPIUM 3 ML NEB RESP TX SCH ×4 (00:01→19:40)
[2021-10-21] MEDS: ENOXAPARIN 40 MG/0.4 ML SYRINGE SUBCUT SCH (00:28)
[2021-10-21] MEDS: PANTOPRAZOLE 40 MG TABLET PO SCH (05:33)
[2021-10-21] MEDS: POLYETHYLENE GLYCOL POWDER 17 GM PACK PO SCH (08:50)
[2021-10-21] MEDS: CITALOPRAM 40 MG TABLET PO SCH (08:51)
[2021-10-21] MEDS: METOPROLOL TARTRATE 25 MG TABLET PO SCH ×2 (08:51→20:23)
[2021-10-21] MEDS: AMIODARONE 200 MG TABLET PO SCH ×2 (08:51→20:23)
[2021-10-21] MEDS: DOCUSATE SODIUM 100 MG CAPSULE PO SCH ×2 (08:51→20:23)
[2021-10-21] MEDS: MONTELUKAST 10 MG TABLET PO SCH ×2 (08:51→20:22)
[2021-10-21] MEDS: HYDROcodone/CHLORPHENIRAMINE ER 5 ML UDCUP PO SCH ×2 (08:51→20:25)
[2021-10-21] MEDS: hydroCHLOROthiazide 25 MG TABLET PO SCH (08:51)
[2021-10-21] MEDS: ASPIRIN EC 81 MG TABLET PO SCH (08:51)
[2021-10-21] MEDS: APIXABAN 5 MG TABLET PO SCH ×2 (08:56→20:22)
[2021-10-21] MEDS: CHLORHEXIDINE 0.12% ORAL RINSE 60 ML BOTTLE SWISH/SPIT SCH ×2 (08:57→20:25)
[2021-10-21] MEDS: LEVOFLOXACIN 500 MG TABLET PO SCH (20:22)
[2021-10-21] MEDS: ATORVASTATIN 40 MG TABLET PO SCH (20:23)
[2021-10-21] MEDS: CLORAZEPATE 3.75 MG TABLET PO PRN (21:56)
[2021-10-22] MEDS: ALBUTEROL/IPRATROPIUM 3 ML NEB RESP TX SCH ×4 (02:18→19:50)
[2021-10-22] MEDS: PANTOPRAZOLE 40 MG TABLET PO SCH (05:35)
[2021-10-22] MEDS: AMIODARONE 200 MG TABLET PO SCH ×2 (09:18→21:07)
[2021-10-22] MEDS: DOCUSATE SODIUM 100 MG CAPSULE PO SCH ×2 (09:18→21:07)
[2021-10-22] MEDS: ASPIRIN EC 81 MG TABLET PO SCH (09:18)
[2021-10-22] MEDS: hydroCHLOROthiazide 25 MG TABLET PO SCH (09:18)
[2021-10-22] MEDS: APIXABAN 5 MG TABLET PO SCH ×2 (09:18→21:07)
[2021-10-22] MEDS: MONTELUKAST 10 MG TABLET PO SCH ×2 (09:18→21:07)
[2021-10-22] MEDS: METOPROLOL TARTRATE 25 MG TABLET PO SCH ×2 (09:19→21:07)
[2021-10-22] MEDS: HYDROcodone/CHLORPHENIRAMINE ER 5 ML UDCUP PO SCH ×2 (09:19→21:07)
[2021-10-22] MEDS: CITALOPRAM 40 MG TABLET PO SCH (09:19)
[2021-10-22] MEDS: POLYETHYLENE GLYCOL POWDER 17 GM PACK PO SCH (09:19)
[2021-10-22] MEDS: CHLORHEXIDINE 0.12% ORAL RINSE 60 ML BOTTLE SWISH/SPIT SCH ×2 (09:20→21:09)
[2021-10-22] MEDS: BENZONATATE 100 MG CAPSULE PO PRN (13:50)
[2021-10-22] MEDS: ATORVASTATIN 40 MG TABLET PO SCH (21:07)
[2021-10-22] MEDS: LEVOFLOXACIN 500 MG TABLET PO SCH (21:07)
[2021-10-23] MEDS: ALBUTEROL/IPRATROPIUM 3 ML NEB RESP TX SCH ×2 (01:08→08:10)
[2021-10-23 05:57] LABS: Calcium 9.1 MG/DL (8.5-10.1); Osmolality,Calculated 272.8 MOS/KG (273-304); Potassium 3.9 MMOL/L (3.5-5.1)
[2021-10-23] MEDS: PANTOPRAZOLE 40 MG TABLET PO SCH (06:11)
[2021-10-23 08:33] VITALS: BP 103/61
[2021-10-23] MEDS: MONTELUKAST 10 MG TABLET PO SCH (09:19)
[2021-10-23] MEDS: METOPROLOL TARTRATE 25 MG TABLET PO SCH (09:19)
[2021-10-23] MEDS: CITALOPRAM 40 MG TABLET PO SCH (09:19)
[2021-10-23] MEDS: ASPIRIN EC 81 MG TABLET PO SCH (09:19)
[2021-10-23] MEDS: APIXABAN 5 MG TABLET PO SCH (09:19)
[2021-10-23] MEDS: AMIODARONE 200 MG TABLET PO SCH (09:19)
[2021-10-23] MEDS: DOCUSATE SODIUM 100 MG CAPSULE PO SCH (09:20)
[2021-10-23] MEDS: hydroCHLOROthiazide 25 MG TABLET PO SCH (09:20)
[2021-10-23] MEDS: BENZONATATE 100 MG CAPSULE PO PRN (09:20)
[2021-10-23] MEDS: POLYETHYLENE GLYCOL POWDER 17 GM PACK PO SCH (09:21)
[2021-10-23] MEDS: HYDROcodone/CHLORPHENIRAMINE ER 5 ML UDCUP PO SCH (09:21)
[2021-10-23] MEDS: CHLORHEXIDINE 0.12% ORAL RINSE 60 ML BOTTLE SWISH/SPIT SCH (09:22)
== END 2021-10-23 10:30 | disposition home health service (06) | DRG 908 ==
LOC: N.ED 17:56 → N.EDINP 10-02 09:00 → N.5E 10-02 12:37 → N.ICU 10-09 09:35 → N.TELES 10-11 16:08

== ENCOUNTER 2021-11-09 10:35 | Inpatient (IN) ==
[2021-11-09] MEDS ORDERED: DEXTROSE 10% 250 ML BAG IV PRN (15:27)
[2021-11-09] MEDS ORDERED: GLUCAGON 1 MG VIAL IM PRN (15:27)
[2021-11-09] MEDS ORDERED: ONDANSETRON 4 MG/2 ML VIAL IV PRN (15:38)
[2021-11-09 16:43] LABS: Basophils # 0.1 10*3/uL (0.0-0.2); Basophils % 0.9 % (0.0-0.8); Eosinophils # 0.4 10*3/uL (0.0-0.87); Eosinophils % 4.4 % (0.00-10.9); Hematocrit 48.8 VOL% (42.0-52.0); Hemoglobin 15.1 GM/DL (14.0-18.0); Immature Granulocytes % 0.3 %; Immature Granulocytes Absolute 0.03 #; Lymphocytes # 2.6 10*3/uL (1.4-4.0); Lymphocytes % 29.6 % (21.2-54.2); Mean Corpuscular HGB Conc 30.9 GM/DL (32-36); Mean Corpuscular Volume 82.2 FL (87-102); Mean Platelet Volume 10.1 FL (9.6-12.0); Monocytes % 8.1 % (1.7-12.7); Neutrophils % 56.7 % (38.7-73.9); Platelet Count 293 T/CUMM (130-400); Red Blood Count 5.94 MC/CUMM (3.8-5.5); White Blood Count 8.8 T/CUMM (4-12)
[2021-11-09 16:54] LABS: Calcium 9.4 MG/DL (8.5-10.1); Osmolality,Calculated 265.5 MOS/KG (273-304); Potassium 3.4 MMOL/L (3.5-5.1)
[2021-11-09] MEDS: SODIUM CHLORIDE 0.45% 1,000 ML IV SCH (16:56)
[2021-11-09] MEDS: SODIUM CHLORIDE 0.9% 1,000 ML IV SCH (16:56)
[2021-11-09 17:12] LABS: Eosinophils 5 % (0-10); Lymphocytes 27 % (20-55); Segmented Neutrophils 61 % (50-85); Total Cells Counted 100
[2021-11-09 17:13] LABS: Anisocytosis 1+; Hypochromia 2+; Microcytosis 1+; Platelet Estimate Normal; Polychromasia Slight
[2021-11-09] MEDS: INSULIN REGULAR 100 UNIT/ML SUBCUT SCH ×2 (17:13→22:41)
[2021-11-10 06:57] LABS: Basophils # 0.1 10*3/uL (0.0-0.2); Basophils % 0.9 % (0.0-0.8); Eosinophils # 0.5 10*3/uL (0.0-0.87); Eosinophils % 3.9 % (0.00-10.9); Hemoglobin 14.5 GM/DL (14.0-18.0); Immature Granulocytes % 0.3 %; Immature Granulocytes Absolute 0.04 #; Lymphocytes # 3.6 10*3/uL (1.4-4.0); Lymphocytes % 28.3 % (21.2-54.2); Mean Corpuscular HGB Conc 30.9 GM/DL (32-36); Mean Corpuscular Volume 83.6 FL (87-102); Mean Platelet Volume 10.5 FL (9.6-12.0); Monocytes % 10.1 % (1.7-12.7); Neutrophils % 56.5 % (38.7-73.9); Platelet Count 287 T/CUMM (130-400); Red Blood Count 5.62 MC/CUMM (3.8-5.5); Red Cell Distribution Width 15.2 % (9.3-17.3); White Blood Count 12.7 T/CUMM (4-12)
[2021-11-10 07:29] LABS: Albumin 3.5 G/DL (3.4-5.0); Bilirubin,Total 0.4 MG/DL (0.20-1.00); Potassium 3.6 MMOL/L (3.5-5.1); Total Protein 7.2 G/DL (6.4-8.2)
[2021-11-10] MEDS: SODIUM CHLORIDE 0.45% 1,000 ML IV SCH ×2 (07:35→21:41)
[2021-11-10] MEDS: INSULIN REGULAR 100 UNIT/ML SUBCUT SCH ×4 (09:30→22:02)
[2021-11-10] MEDS ORDERED: diphenhydrAMINE CAP 25 MG CAPSULE PO PRN (10:10)
[2021-11-10] MEDS: PANTOPRAZOLE 40 MG TABLET PO SCH (10:27)
[2021-11-10] MEDS: ASPIRIN EC 81 MG TABLET PO SCH (10:27)
[2021-11-10] MEDS: CITALOPRAM 40 MG TABLET PO SCH (10:27)
[2021-11-10] MEDS: DOCUSATE SODIUM 100 MG CAPSULE PO SCH (10:27)
[2021-11-10] MEDS: hydroCHLOROthiazide 25 MG TABLET PO SCH (10:28)
[2021-11-10] MEDS: AMIODARONE 200 MG TABLET PO SCH ×2 (10:28→21:41)
[2021-11-10] MEDS: METOPROLOL TARTRATE 25 MG TABLET PO SCH ×2 (11:10→21:42)
[2021-11-10] MEDS: POLYETHYLENE GLYCOL POWDER 17 GM PACK PO SCH (11:10)
[2021-11-10] MEDS: ATORVASTATIN 40 MG TABLET PO SCH (21:42)
[2021-11-11] MEDS ORDERED: FUROSEMIDE 40 MG/4 ML VIAL IV ONE (08:05)
[2021-11-11] MEDS: METOPROLOL TARTRATE 25 MG TABLET PO SCH ×2 (09:20→21:03)
[2021-11-11] MEDS: CITALOPRAM 40 MG TABLET PO SCH (09:20)
[2021-11-11] MEDS: hydroCHLOROthiazide 25 MG TABLET PO SCH (09:20)
[2021-11-11] MEDS: ASPIRIN EC 81 MG TABLET PO SCH (09:20)
[2021-11-11] MEDS: AMIODARONE 200 MG TABLET PO SCH ×2 (09:20→21:03)
[2021-11-11] MEDS: POLYETHYLENE GLYCOL POWDER 17 GM PACK PO SCH (09:20)
[2021-11-11] MEDS: DOCUSATE SODIUM 100 MG CAPSULE PO SCH (09:21)
[2021-11-11] MEDS: PANTOPRAZOLE 40 MG TABLET PO SCH (09:21)
[2021-11-11 10:26] LABS: Calcium 9.3 MG/DL (8.5-10.1); Osmolality,Calculated 255.2 MOS/KG (273-304); Potassium 3.5 MMOL/L (3.5-5.1)
[2021-11-11] MEDS: INSULIN REGULAR 100 UNIT/ML SUBCUT SCH ×4 (10:28→21:23)
[2021-11-11] MEDS: SODIUM CHLORIDE 0.9% 1,000 ML IV SCH ×2 (10:28→16:27)
[2021-11-11] MEDS: SODIUM CHLORIDE 0.45% 1,000 ML IV SCH (10:30)
[2021-11-11] MEDS: TAMSULOSIN 0.4 MG CAPSULE PO SCH (10:58)
[2021-11-11] MEDS: ALBUTEROL/IPRATROPIUM 3 ML NEB RESP TX SCH ×3 (11:30→19:07)
[2021-11-11 11:52] LABS: Bacteria,Urine Occasional /HPF (Few); Bilirubin,Urine Negative (Negative); Blood, Urine Negative (Negative); Glucose,Urine (UA) Negative (Negative); Ketones,Urine Negative (Negative); Nitrite,Urine Negative (Negative); Protein,Urine Negative; Urine Appearance CLEAR (Clear); Urine Color Straw (Yellow); Urine Specific Gravity 1.005 (1.001-1.035); Urine Urobilinogen < 2.0 EU/DL (<2.0)
[2021-11-11] MEDS: APIXABAN 2.5 MG TABLET PO SCH ×2 (14:25→21:03)
[2021-11-11] MEDS: ATORVASTATIN 40 MG TABLET PO SCH ×2 (21:02)
[2021-11-12] MEDS: ALBUTEROL/IPRATROPIUM 3 ML NEB RESP TX SCH ×4 (01:52→19:39)
[2021-11-12 05:19] LABS: Basophils # 0.1 10*3/uL (0.0-0.2); Basophils % 0.5 % (0.0-0.8); Eosinophils # 0.1 10*3/uL (0.0-0.87); Eosinophils % 0.8 % (0.00-10.9); Hematocrit 41.2 VOL% (42.0-52.0); Hemoglobin 13.3 GM/DL (14.0-18.0); Immature Granulocytes % 0.4 %; Immature Granulocytes Absolute 0.05 #; Lymphocytes # 1.2 10*3/uL (1.4-4.0); Lymphocytes % 10.6 % (21.2-54.2); Mean Corpuscular HGB Conc 32.3 GM/DL (32-36); Mean Corpuscular Volume 79.8 FL (87-102); Mean Platelet Volume 10.1 FL (9.6-12.0); Monocytes % 10.8 % (1.7-12.7); Neutrophils % 76.9 % (38.7-73.9); Platelet Count 145 T/CUMM (130-400); Red Blood Count 5.16 MC/CUMM (3.8-5.5); Red Cell Distribution Width 15.1 % (9.3-17.3); White Blood Count 11.2 T/CUMM (4-12)
[2021-11-12 05:56] LABS: Calcium 8.8 MG/DL (8.5-10.1); Osmolality,Calculated 255.2 MOS/KG (273-304); Potassium 3.1 MMOL/L (3.5-5.1)
[2021-11-12] MEDS ORDERED: POTASSIUM CHLORIDE 20 MEQ TABLET PO ONE (07:41)
[2021-11-12] MEDS ORDERED: MAGNESIUM SULF RIDER 2 GM/50 ML PREMIX IV ONE (08:00)
[2021-11-12] MEDS ORDERED: ALBUTEROL 2.5 MG/3 ML NEB RESP TX PRN (09:00)
[2021-11-12] MEDS: AMIODARONE 200 MG TABLET PO SCH ×2 (09:13→22:18)
[2021-11-12] MEDS: ASPIRIN EC 81 MG TABLET PO SCH (09:13)
[2021-11-12] MEDS: DOCUSATE SODIUM 100 MG CAPSULE PO SCH (09:13)
[2021-11-12] MEDS: METOPROLOL TARTRATE 25 MG TABLET PO SCH ×2 (09:13→22:18)
[2021-11-12] MEDS: TAMSULOSIN 0.4 MG CAPSULE PO SCH (09:13)
[2021-11-12] MEDS: PANTOPRAZOLE 40 MG TABLET PO SCH (09:13)
[2021-11-12] MEDS: POLYETHYLENE GLYCOL POWDER 17 GM PACK PO SCH (09:14)
[2021-11-12] MEDS: CITALOPRAM 40 MG TABLET PO SCH (09:14)
[2021-11-12] MEDS: APIXABAN 2.5 MG TABLET PO SCH ×2 (09:14→22:18)
[2021-11-12] MEDS: hydroCHLOROthiazide 25 MG TABLET PO SCH (09:14)
[2021-11-12] MEDS: INSULIN REGULAR 100 UNIT/ML SUBCUT SCH ×3 (09:16→15:33)
[2021-11-12] MEDS: FUROSEMIDE 40 MG TABLET PO SCH (09:17)
[2021-11-12] MEDS: SODIUM CHLORIDE 0.9% 1,000 ML IV SCH (15:33)
[2021-11-12] MEDS: ATORVASTATIN 40 MG TABLET PO SCH (22:18)
[2021-11-13] MEDS: ALBUTEROL/IPRATROPIUM 3 ML NEB RESP TX SCH ×2 (00:32→08:18)
[2021-11-13] MEDS: INSULIN REGULAR 100 UNIT/ML SUBCUT SCH ×5 (00:47→22:34)
[2021-11-13] MEDS: ACETAMINOPHEN 325 MG TABLET PO PRN ×3 (06:25→22:10)
[2021-11-13 07:04] LABS: Basophils # 0.1 10*3/uL (0.0-0.2); Basophils % 0.6 % (0.0-0.8); Eosinophils # 0.1 10*3/uL (0.0-0.87); Eosinophils % 0.8 % (0.00-10.9); Hematocrit 38.8 VOL% (42.0-52.0); Hemoglobin 12.6 GM/DL (14.0-18.0); Immature Granulocytes % 0.6 %; Immature Granulocytes Absolute 0.06 #; Lymphocytes # 0.8 10*3/uL (1.4-4.0); Lymphocytes % 7.7 % (21.2-54.2); Mean Corpuscular HGB Conc 32.5 GM/DL (32-36); Mean Platelet Volume 10.4 FL (9.6-12.0); Monocytes % 11.3 % (1.7-12.7); Platelet Count 116 T/CUMM (130-400); Red Blood Count 4.85 MC/CUMM (3.8-5.5); Red Cell Distribution Width 15.4 % (9.3-17.3); White Blood Count 10.7 T/CUMM (4-12)
[2021-11-13 07:33] LABS: Calcium 8.8 MG/DL (8.5-10.1); Osmolality,Calculated 248.6 MOS/KG (273-304); Potassium 3.3 MMOL/L (3.5-5.1)
[2021-11-13] MEDS ORDERED: FUROSEMIDE 40 MG/4 ML VIAL IV ONE ×2 (08:50→16:00)
[2021-11-13] MEDS ORDERED: POTASSIUM CHLORIDE 20 MEQ TABLET PO ONE (08:51)
[2021-11-13] MEDS: METOPROLOL TARTRATE 25 MG TABLET PO SCH ×2 (09:11→22:10)
[2021-11-13] MEDS: PANTOPRAZOLE 40 MG TABLET PO SCH (09:11)
[2021-11-13] MEDS: TAMSULOSIN 0.4 MG CAPSULE PO SCH (09:11)
[2021-11-13] MEDS: DOCUSATE SODIUM 100 MG CAPSULE PO SCH (09:12)
[2021-11-13] MEDS: hydroCHLOROthiazide 25 MG TABLET PO SCH (09:12)
[2021-11-13] MEDS: ASPIRIN EC 81 MG TABLET PO SCH (09:12)
[2021-11-13] MEDS: APIXABAN 2.5 MG TABLET PO SCH ×2 (09:12→22:10)
[2021-11-13] MEDS: CITALOPRAM 40 MG TABLET PO SCH (09:12)
[2021-11-13] MEDS: FUROSEMIDE 40 MG TABLET PO SCH (09:12)
[2021-11-13] MEDS: AMIODARONE 200 MG TABLET PO SCH ×2 (09:12→22:10)
[2021-11-13] MEDS: POLYETHYLENE GLYCOL POWDER 17 GM PACK PO SCH (09:12)
[2021-11-13] MEDS: POTASSIUM CHLORIDE 20 MEQ TABLET PO SCH (09:12)
[2021-11-13] MEDS: SODIUM CHLORIDE 0.9% 1,000 ML IV SCH (15:30)
[2021-11-13] MEDS: ATORVASTATIN 40 MG TABLET PO SCH (22:10)
[2021-11-14 06:56] LABS: Basophils % 0.5 % (0.0-0.8); Eosinophils # 0.2 10*3/uL (0.0-0.87); Eosinophils % 1.9 % (0.00-10.9); Hematocrit 39.2 VOL% (42.0-52.0); Hemoglobin 12.8 GM/DL (14.0-18.0); Immature Granulocytes % 0.7 %; Immature Granulocytes Absolute 0.06 #; Lymphocytes # 0.7 10*3/uL (1.4-4.0); Lymphocytes % 7.9 % (21.2-54.2); Mean Corpuscular HGB Conc 32.7 GM/DL (32-36); Mean Corpuscular Volume 79.4 FL (87-102); Mean Platelet Volume 10.2 FL (9.6-12.0); Monocytes % 9.9 % (1.7-12.7); Neutrophils % 79.1 % (38.7-73.9); Platelet Count 188 T/CUMM (130-400); Red Blood Count 4.94 MC/CUMM (3.8-5.5); Red Cell Distribution Width 15.1 % (9.3-17.3); White Blood Count 8.5 T/CUMM (4-12)
[2021-11-14] MEDS: ACETAMINOPHEN 325 MG TABLET PO PRN (07:22)
[2021-11-14 07:33] LABS: Albumin 2.5 G/DL (3.4-5.0); Bilirubin,Total 0.9 MG/DL (0.20-1.00); Calcium 9.1 MG/DL (8.5-10.1); Osmolality,Calculated 243.2 MOS/KG (273-304); Potassium 3.1 MMOL/L (3.5-5.1); Total Protein 7.3 G/DL (6.4-8.2)
[2021-11-14] MEDS ORDERED: VANCOMYCIN INJ 1,000 MG in SODIUM CHLORIDE 0.9% 250 ML IV ONE ×2 (10:52→23:00)
[2021-11-14] MEDS: ASPIRIN EC 81 MG TABLET PO SCH (11:02)
[2021-11-14] MEDS: INSULIN REGULAR 100 UNIT/ML SUBCUT SCH ×4 (11:02→20:09)
[2021-11-14] MEDS: DOCUSATE SODIUM 100 MG CAPSULE PO SCH (11:03)
[2021-11-14] MEDS: TAMSULOSIN 0.4 MG CAPSULE PO SCH (11:03)
[2021-11-14] MEDS: AMIODARONE 200 MG TABLET PO SCH ×2 (11:03→20:09)
[2021-11-14] MEDS: CITALOPRAM 40 MG TABLET PO SCH (11:03)
[2021-11-14] MEDS: APIXABAN 2.5 MG TABLET PO SCH ×2 (11:03→20:09)
[2021-11-14] MEDS: POTASSIUM CHLORIDE 20 MEQ TABLET PO SCH (11:04)
[2021-11-14] MEDS: METOPROLOL TARTRATE 25 MG TABLET PO SCH ×2 (11:04→20:10)
[2021-11-14] MEDS: hydroCHLOROthiazide 25 MG TABLET PO SCH (11:04)
[2021-11-14] MEDS: FUROSEMIDE 40 MG TABLET PO SCH (11:04)
[2021-11-14] MEDS: POLYETHYLENE GLYCOL POWDER 17 GM PACK PO SCH (11:04)
[2021-11-14] MEDS: PANTOPRAZOLE 40 MG TABLET PO SCH (11:05)
[2021-11-14] MEDS: LEVOFLOXACIN 500 MG TABLET PO SCH (11:31)
[2021-11-14] MEDS: SODIUM CHLOR 0.9% KCL 40 MEQ 40 MEQ/1,000 ML BAG IV SCH (11:31)
[2021-11-14] MEDS: SODIUM CHLORIDE 0.9% 1,000 ML IV SCH (16:46)
[2021-11-14] MEDS: ATORVASTATIN 40 MG TABLET PO SCH (20:09)
[2021-11-15] MEDS: ACETAMINOPHEN 325 MG TABLET PO PRN (03:05)
[2021-11-15] MEDS ORDERED: VANCOMYCIN INJ 1,000 MG in SODIUM CHLORIDE 0.9% 250 ML IV ONE (04:00)
[2021-11-15 06:37] LABS: Basophils % 0.3 % (0.0-0.8); Eosinophils # 0.1 10*3/uL (0.0-0.87); Eosinophils % 0.8 % (0.00-10.9); Hematocrit 34.7 VOL% (42.0-52.0); Hemoglobin 11.1 GM/DL (14.0-18.0); Immature Granulocytes % 0.6 %; Immature Granulocytes Absolute 0.05 #; Mean Corpuscular Volume 80.7 FL (87-102); Mean Platelet Volume 10.3 FL (9.6-12.0); Monocytes % 17.7 % (1.7-12.7); Neutrophils % 69.6 % (38.7-73.9); Platelet Count 146 T/CUMM (130-400); White Blood Count 9.1 T/CUMM (4-12)
[2021-11-15 06:59] LABS: Albumin 2.2 G/DL (3.4-5.0); Bilirubin,Total 1.2 MG/DL (0.20-1.00); Calcium 8.5 MG/DL (8.5-10.1); Osmolality,Calculated 250.5 MOS/KG (273-304); Potassium 3.4 MMOL/L (3.5-5.1); Total Protein 6.7 G/DL (6.4-8.2)
[2021-11-15 07:00] LABS: Anisocytosis 1+; Band Neutrophils 17 % (0-10); Lymphocytes 13 % (20-55); Platelet Estimate Adequate; Segmented Neutrophils 52 % (50-85); Total Cells Counted 100
[2021-11-15] MEDS ORDERED: FUROSEMIDE 40 MG/4 ML VIAL IV ONE (09:42)
[2021-11-15] MEDS: POTASSIUM CHLORIDE 20 MEQ TABLET PO SCH (11:02)
[2021-11-15] MEDS: ASPIRIN EC 81 MG TABLET PO SCH (11:03)
[2021-11-15] MEDS: AMIODARONE 200 MG TABLET PO SCH ×2 (11:03→20:46)
[2021-11-15] MEDS: DOCUSATE SODIUM 100 MG CAPSULE PO SCH (11:03)
[2021-11-15] MEDS: FUROSEMIDE 40 MG TABLET PO SCH (11:03)
[2021-11-15] MEDS: METOPROLOL TARTRATE 25 MG TABLET PO SCH ×2 (11:04→20:46)
[2021-11-15] MEDS: PANTOPRAZOLE 40 MG TABLET PO SCH (11:04)
[2021-11-15] MEDS: LEVOFLOXACIN 500 MG TABLET PO SCH (11:05)
[2021-11-15] MEDS: TAMSULOSIN 0.4 MG CAPSULE PO SCH (11:05)
[2021-11-15] MEDS: APIXABAN 2.5 MG TABLET PO SCH ×2 (11:05→20:45)
[2021-11-15] MEDS: POLYETHYLENE GLYCOL POWDER 17 GM PACK PO SCH (11:06)
[2021-11-15] MEDS: INSULIN REGULAR 100 UNIT/ML SUBCUT SCH ×4 (11:11→20:55)
[2021-11-15] MEDS: CITALOPRAM 40 MG TABLET PO SCH (11:12)
[2021-11-15] MEDS: hydroCHLOROthiazide 25 MG TABLET PO SCH (11:12)
[2021-11-15] MEDS: SODIUM CHLOR 0.9% KCL 40 MEQ 40 MEQ/1,000 ML BAG IV SCH (11:12)
[2021-11-15] MEDS ORDERED: FUROSEMIDE 40 MG/4 ML VIAL ONE (12:16)
[2021-11-15] MEDS: SODIUM CHLORIDE 0.9% 1,000 ML IV SCH (12:25)
[2021-11-15 17:11] LABS: Calcium 8.4 MG/DL (8.5-10.1); Osmolality,Calculated 250.5 MOS/KG (273-304); Potassium 3.2 MMOL/L (3.5-5.1)
[2021-11-15] MEDS: ATORVASTATIN 40 MG TABLET PO SCH (20:45)
[2021-11-15] MEDS: BUDESONIDE/FORMOTEROL 160-4.5 INHALER 6 GM INH SCH (20:46)
[2021-11-16] MEDS: ACETAMINOPHEN 325 MG TABLET PO PRN (00:10)
[2021-11-16] MEDS: SODIUM CHLORIDE 0.9% 1,000 ML IV SCH ×2 (01:37→13:46)
[2021-11-16 05:38] LABS: Osmolality,Calculated 257.1 MOS/KG (273-304); Potassium 3.3 MMOL/L (3.5-5.1)
[2021-11-16 05:41] LABS: Albumin 1.9 G/DL (3.4-5.0); Bilirubin,Total 0.4 MG/DL (0.20-1.00); Calcium 8.4 MG/DL (8.5-10.1); Free T4 (Free Thyroxine) 1.44 NG/DL (0.76-1.46); Osmolality,Calculated 253.4 MOS/KG (273-304); Potassium 3.2 MMOL/L (3.5-5.1); Total Protein 6.3 G/DL (6.4-8.2)
[2021-11-16] MEDS ORDERED: POTASSIUM CHLORIDE 20 MEQ TABLET PO ONE (07:28)
[2021-11-16] MEDS: ASPIRIN EC 81 MG TABLET PO SCH (08:56)
[2021-11-16] MEDS: POLYETHYLENE GLYCOL POWDER 17 GM PACK PO SCH (08:56)
[2021-11-16] MEDS: DOCUSATE SODIUM 100 MG CAPSULE PO SCH (08:56)
[2021-11-16] MEDS: TAMSULOSIN 0.4 MG CAPSULE PO SCH (08:57)
[2021-11-16] MEDS: METOPROLOL TARTRATE 25 MG TABLET PO SCH ×2 (08:57→21:08)
[2021-11-16] MEDS: AMIODARONE 200 MG TABLET PO SCH (08:57)
[2021-11-16] MEDS: APIXABAN 2.5 MG TABLET PO SCH (08:57)
[2021-11-16] MEDS: LEVOFLOXACIN 500 MG TABLET PO SCH (08:57)
[2021-11-16] MEDS: POTASSIUM CHLORIDE 20 MEQ TABLET PO SCH ×2 (08:57→21:08)
[2021-11-16] MEDS: BUDESONIDE/FORMOTEROL 160-4.5 INHALER 6 GM INH SCH ×2 (08:58→21:08)
[2021-11-16] MEDS: PANTOPRAZOLE 40 MG TABLET PO SCH (08:58)
[2021-11-16] MEDS: INSULIN REGULAR 100 UNIT/ML SUBCUT SCH ×4 (09:01→21:02)
[2021-11-16 09:46] LABS: Creatinine,Urine Random 138 MG/DL; Sodium, Urine Random < 5.0 MMOL/L
[2021-11-16] MEDS: FUROSEMIDE 40 MG/4 ML VIAL IV SCH (16:10)
[2021-11-17] MEDS: SODIUM CHLORIDE 0.9% 1,000 ML IV SCH ×3 (01:45→17:52)
[2021-11-17 05:47] LABS: Basophils # 0.1 10*3/uL (0.0-0.2); Basophils % 0.7 % (0.0-0.8); Eosinophils # 0.3 10*3/uL (0.0-0.87); Eosinophils % 3.9 % (0.00-10.9); Hematocrit 34.2 VOL% (42.0-52.0); Hemoglobin 10.4 GM/DL (14.0-18.0); Immature Granulocytes % 0.8 %; Immature Granulocytes Absolute 0.07 #; Lymphocytes # 1.9 10*3/uL (1.4-4.0); Lymphocytes % 22.9 % (21.2-54.2); Mean Corpuscular HGB Conc 30.4 GM/DL (32-36); Mean Platelet Volume 10.1 FL (9.6-12.0); Monocytes % 12.6 % (1.7-12.7); Neutrophils % 59.1 % (38.7-73.9); Platelet Count 178 T/CUMM (130-400); Red Blood Count 4.12 MC/CUMM (3.8-5.5); Red Cell Distribution Width 15.2 % (9.3-17.3); White Blood Count 8.4 T/CUMM (4-12)
[2021-11-17 06:15] LABS: Calcium 8.6 MG/DL (8.5-10.1); Osmolality,Calculated 258.8 MOS/KG (273-304); Potassium 3.4 MMOL/L (3.5-5.1)
[2021-11-17] MEDS ORDERED: APIXABAN 2.5 MG TABLET PO SCH (09:00)
[2021-11-17] MEDS: POTASSIUM CHLORIDE 20 MEQ TABLET PO SCH ×2 (09:57→20:41)
[2021-11-17] MEDS: ASPIRIN EC 81 MG TABLET PO SCH (09:57)
[2021-11-17] MEDS: PANTOPRAZOLE 40 MG TABLET PO SCH (09:57)
[2021-11-17] MEDS: METOPROLOL TARTRATE 25 MG TABLET PO SCH ×2 (09:57→20:42)
[2021-11-17] MEDS: AMIODARONE 200 MG TABLET PO SCH (09:57)
[2021-11-17] MEDS: LEVOFLOXACIN 500 MG TABLET PO SCH (09:58)
[2021-11-17] MEDS: guaiFENesin/CODEINE 5 ML LIQUID PO PRN ×2 (09:58→22:28)
[2021-11-17] MEDS: DOCUSATE SODIUM 100 MG CAPSULE PO SCH (09:58)
[2021-11-17] MEDS: TAMSULOSIN 0.4 MG CAPSULE PO SCH (09:59)
[2021-11-17] MEDS: FUROSEMIDE 40 MG/4 ML VIAL IV SCH (09:59)
[2021-11-17] MEDS: POLYETHYLENE GLYCOL POWDER 17 GM PACK PO SCH (09:59)
[2021-11-17] MEDS: LINEZOLID INJ 600 MG/300 ML PREMIX IV SCH ×2 (10:02→22:28)
[2021-11-17] MEDS: BUDESONIDE/FORMOTEROL 160-4.5 INHALER 6 GM INH SCH ×2 (10:08→20:47)
[2021-11-17] MEDS: INSULIN REGULAR 100 UNIT/ML SUBCUT SCH ×4 (10:09→22:36)
[2021-11-17 15:45] LABS: ABG Base Excess 6.3 MMOL/L (-2.5-2.5); ABG HCO3 29.9 MMOL/L (20-26); ABG Oxygen Saturation 90.1 % (95-100); ABG PCO2 50.8 MM HG (35-48); ABG PH 7.409 (7.35-7.45); ABG PO2 64.1 MM HG (80-95); ABG TCO2 28.8 MMOL/L (23-27)
[2021-11-17] MEDS: LORazepam 1 MG TABLET PO PRN (20:42)
[2021-11-18] MEDS ORDERED: ZALEPLON 5 MG CAPSULE PO PRN (01:37)
[2021-11-18] MEDS: guaiFENesin/CODEINE 5 ML LIQUID PO PRN (04:19)
[2021-11-18 05:34] LABS: Calcium 8.7 MG/DL (8.5-10.1); Osmolality,Calculated 256.9 MOS/KG (273-304); Potassium 3.5 MMOL/L (3.5-5.1)
[2021-11-18 07:29] LABS: Basophils # 0.1 10*3/uL (0.0-0.2); Basophils % 0.8 % (0.0-0.8); Eosinophils # 0.5 10*3/uL (0.0-0.87); Eosinophils % 6.3 % (0.00-10.9); Hematocrit 35.2 VOL% (42.0-52.0); Hemoglobin 10.8 GM/DL (14.0-18.0); Immature Granulocytes % 1.4 %; Immature Granulocytes Absolute 0.11 #; Lymphocytes % 26.5 % (21.2-54.2); Mean Corpuscular HGB Conc 30.7 GM/DL (32-36); Mean Corpuscular Volume 82.6 FL (87-102); Mean Platelet Volume 10.1 FL (9.6-12.0); Monocytes % 10.8 % (1.7-12.7); Neutrophils % 54.2 % (38.7-73.9); Platelet Count 186 T/CUMM (130-400); Red Blood Count 4.26 MC/CUMM (3.8-5.5); Red Cell Distribution Width 15.2 % (9.3-17.3); White Blood Count 7.7 T/CUMM (4-12)
[2021-11-18] MEDS: SODIUM CHLORIDE 0.9% 1,000 ML IV SCH ×2 (07:49→22:44)
[2021-11-18] MEDS: INSULIN REGULAR 100 UNIT/ML SUBCUT SCH ×4 (08:00→21:19)
[2021-11-18] MEDS ORDERED: CLORAZEPATE 7.5 MG TABLET PO PRN (08:02)
[2021-11-18 08:49] LABS: Band Neutrophils 16 % (0-10); Eosinophils 6 % (0-10); Lymphocytes 24 % (20-55); Metamyelocytes 1 %; Platelet Estimate Normal; Segmented Neutrophils 43 % (50-85); Total Cells Counted 100
[2021-11-18 08:50] LABS: Anisocytosis 1+; Macrocytosis Slight
[2021-11-18] MEDS: PANTOPRAZOLE 40 MG TABLET PO SCH (12:26)
[2021-11-18] MEDS: LEVOFLOXACIN 500 MG TABLET PO SCH (12:26)
[2021-11-18] MEDS: ASPIRIN EC 81 MG TABLET PO SCH (12:26)
[2021-11-18] MEDS: TAMSULOSIN 0.4 MG CAPSULE PO SCH (12:26)
[2021-11-18] MEDS: DOCUSATE SODIUM 100 MG CAPSULE PO SCH (12:26)
[2021-11-18] MEDS: AMIODARONE 200 MG TABLET PO SCH (12:26)
[2021-11-18] MEDS: POLYETHYLENE GLYCOL POWDER 17 GM PACK PO SCH ×2 (12:27→13:29)
[2021-11-18] MEDS: POTASSIUM CHLORIDE 20 MEQ TABLET PO SCH ×2 (12:27→21:18)
[2021-11-18] MEDS: FUROSEMIDE 40 MG/4 ML VIAL IV SCH (12:27)
[2021-11-18] MEDS: METOPROLOL TARTRATE 25 MG TABLET PO SCH ×2 (12:27→21:19)
[2021-11-18] MEDS: LINEZOLID INJ 600 MG/300 ML PREMIX IV SCH ×2 (12:27→21:20)
[2021-11-18] MEDS: BUDESONIDE/FORMOTEROL 160-4.5 INHALER 6 GM INH SCH ×2 (13:29→22:44)
[2021-11-18] MEDS: LORazepam 1 MG TABLET PO PRN (21:19)
[2021-11-19 05:36] LABS: Basophils # 0.1 10*3/uL (0.0-0.2); Basophils % 0.7 % (0.0-0.8); Eosinophils # 0.3 10*3/uL (0.0-0.87); Hematocrit 34.3 VOL% (42.0-52.0); Hemoglobin 10.6 GM/DL (14.0-18.0); Immature Granulocytes % 1.7 %; Immature Granulocytes Absolute 0.14 #; Lymphocytes % 23.5 % (21.2-54.2); Mean Corpuscular HGB Conc 30.9 GM/DL (32-36); Mean Corpuscular Volume 83.5 FL (87-102); Mean Platelet Volume 9.3 FL (9.6-12.0); Monocytes % 10.7 % (1.7-12.7); Neutrophils % 60.4 % (38.7-73.9); Platelet Count 296 T/CUMM (130-400); Red Blood Count 4.11 MC/CUMM (3.8-5.5); Red Cell Distribution Width 15.4 % (9.3-17.3); White Blood Count 8.3 T/CUMM (4-12)
[2021-11-19 05:51] LABS: Calcium 8.8 MG/DL (8.5-10.1); Osmolality,Calculated 261.5 MOS/KG (273-304); Potassium 3.9 MMOL/L (3.5-5.1)
[2021-11-19 05:55] LABS: Albumin 2.2 G/DL (3.4-5.0); Bilirubin,Total 0.4 MG/DL (0.20-1.00); Calcium 8.7 MG/DL (8.5-10.1); Osmolality,Calculated 259.7 MOS/KG (273-304); Potassium 4.1 MMOL/L (3.5-5.1); Total Protein 5.9 G/DL (6.4-8.2)
[2021-11-19] MEDS: INSULIN REGULAR 100 UNIT/ML SUBCUT SCH ×4 (10:15→23:31)
[2021-11-19] MEDS: SODIUM CHLORIDE 0.9% 1,000 ML IV SCH (10:16)
[2021-11-19] MEDS: PANTOPRAZOLE 40 MG TABLET PO SCH (10:17)
[2021-11-19] MEDS: METOPROLOL TARTRATE 25 MG TABLET PO SCH ×2 (10:17→21:23)
[2021-11-19] MEDS: AMIODARONE 200 MG TABLET PO SCH (10:17)
[2021-11-19] MEDS: POTASSIUM CHLORIDE 20 MEQ TABLET PO SCH ×2 (10:18→21:23)
[2021-11-19] MEDS: TAMSULOSIN 0.4 MG CAPSULE PO SCH (10:19)
[2021-11-19] MEDS: ASPIRIN EC 81 MG TABLET PO SCH (10:19)
[2021-11-19] MEDS: DOCUSATE SODIUM 100 MG CAPSULE PO SCH (10:19)
[2021-11-19] MEDS: POLYETHYLENE GLYCOL POWDER 17 GM PACK PO SCH (10:20)
[2021-11-19] MEDS: FUROSEMIDE 40 MG/4 ML VIAL IV SCH (10:20)
[2021-11-19] MEDS: BUDESONIDE/FORMOTEROL 160-4.5 INHALER 6 GM INH SCH ×2 (10:27→21:23)
[2021-11-19] MEDS: LINEZOLID INJ 600 MG/300 ML PREMIX IV SCH ×2 (10:29→21:23)
[2021-11-20 06:15] LABS: Basophils # 0.1 10*3/uL (0.0-0.2); Eosinophils # 0.3 10*3/uL (0.0-0.87); Eosinophils % 3.7 % (0.00-10.9); Hematocrit 33.9 VOL% (42.0-52.0); Hemoglobin 10.4 GM/DL (14.0-18.0); Immature Granulocytes % 1.7 %; Immature Granulocytes Absolute 0.12 #; Mean Corpuscular HGB Conc 30.7 GM/DL (32-36); Mean Corpuscular Volume 84.3 FL (87-102); Mean Platelet Volume 9.1 FL (9.6-12.0); Monocytes % 9.3 % (1.7-12.7); Neutrophils % 56.3 % (38.7-73.9); Platelet Count 321 T/CUMM (130-400); Red Blood Count 4.02 MC/CUMM (3.8-5.5); Red Cell Distribution Width 15.9 % (9.3-17.3)
[2021-11-20 06:42] LABS: Calcium 8.4 MG/DL (8.5-10.1); Osmolality,Calculated 269.1 MOS/KG (273-304); Potassium 3.7 MMOL/L (3.5-5.1)
[2021-11-20] MEDS: SODIUM CHLORIDE 0.9% 1,000 ML IV SCH ×2 (08:54→12:18)
[2021-11-20] MEDS: INSULIN REGULAR 100 UNIT/ML SUBCUT SCH ×4 (08:55→21:42)
[2021-11-20] MEDS: METOPROLOL TARTRATE 25 MG TABLET PO SCH ×2 (10:08→20:50)
[2021-11-20] MEDS: ASPIRIN EC 81 MG TABLET PO SCH (10:08)
[2021-11-20] MEDS: DOCUSATE SODIUM 100 MG CAPSULE PO SCH (10:08)
[2021-11-20] MEDS: PANTOPRAZOLE 40 MG TABLET PO SCH (10:09)
[2021-11-20] MEDS: POTASSIUM CHLORIDE 20 MEQ TABLET PO SCH ×2 (10:09→20:50)
[2021-11-20] MEDS: TAMSULOSIN 0.4 MG CAPSULE PO SCH (10:09)
[2021-11-20] MEDS: BUDESONIDE/FORMOTEROL 160-4.5 INHALER 6 GM INH SCH ×2 (10:09→21:42)
[2021-11-20] MEDS: AMIODARONE 200 MG TABLET PO SCH (10:09)
[2021-11-20] MEDS: POLYETHYLENE GLYCOL POWDER 17 GM PACK PO SCH (10:10)
[2021-11-20] MEDS: LEVOFLOXACIN 500 MG TABLET PO SCH (10:28)
[2021-11-20] MEDS: LINEZOLID INJ 600 MG/300 ML PREMIX IV SCH (11:10)
[2021-11-20] MEDS: SODIUM HYPOCHLORITE 0.25% IRRIG 473 ML BOTTLE TOP SCH (16:57)
[2021-11-20] MEDS: ASCORBIC ACID 500 MG TABLET PO SCH (20:50)
[2021-11-20] MEDS ORDERED: CITALOPRAM 40 MG TABLET PO SCH (21:00)
[2021-11-21] MEDS: SODIUM CHLORIDE 0.9% 1,000 ML IV SCH ×2 (01:54→15:02)
[2021-11-21 05:00] LABS: Calcium 9.3 MG/DL (8.5-10.1); Osmolality,Calculated 267.2 MOS/KG (273-304); Potassium 4.6 MMOL/L (3.5-5.1)
[2021-11-21] MEDS: TAMSULOSIN 0.4 MG CAPSULE PO SCH (10:40)
[2021-11-21] MEDS: LEVOFLOXACIN 500 MG TABLET PO SCH (10:40)
[2021-11-21] MEDS: ASPIRIN EC 81 MG TABLET PO SCH (10:40)
[2021-11-21] MEDS: AMIODARONE 200 MG TABLET PO SCH (10:40)
[2021-11-21] MEDS: METOPROLOL TARTRATE 25 MG TABLET PO SCH (10:40)
[2021-11-21] MEDS: DOCUSATE SODIUM 100 MG CAPSULE PO SCH (10:40)
[2021-11-21] MEDS: INSULIN REGULAR 100 UNIT/ML SUBCUT SCH ×2 (10:41→14:45)
[2021-11-21] MEDS: PANTOPRAZOLE 40 MG TABLET PO SCH (10:41)
[2021-11-21] MEDS: POLYETHYLENE GLYCOL POWDER 17 GM PACK PO SCH (10:41)
[2021-11-21] MEDS: ASCORBIC ACID 500 MG TABLET PO SCH (10:45)
[2021-11-21] MEDS: BUDESONIDE/FORMOTEROL 160-4.5 INHALER 6 GM INH SCH (10:46)
[2021-11-21] MEDS: SODIUM HYPOCHLORITE 0.25% IRRIG 473 ML BOTTLE TOP SCH (10:47)
[2021-11-21 13:22] VITALS: BP 124/69
== END 2021-11-21 14:52 | disposition home health service (06) | DRG 920 ==
LOC: N.ED 10:35 → N.EDINP 15:28 → N.TELES 20:40